=== PATIENT | male | born 1965 | race Two or more races ===

== ENCOUNTER 2024-09-27 20:18 | Emergency (ER) | payer SELFPAY ==
[2024-09-27] VITALS (8 sets, daily range): BP systolic 175–210; BP diastolic 100–142; PULSE 118–125; RESP 16–18; TEMP 37.3–38.2; O2SAT 98–100; BMI 31.0
--- NOTE | 2024-09-27 20:20 | EKG_ITS ---
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
--- NOTE | 2024-09-27 20:20 | XR_ITS ---
Examination: CT brain head without contrast. 2-D sagittal coronal reconstructions Date and time of exam:September 27, 2024 2119 hrs. Indications: Altered mental status today CTDI: vol (mGy):53.6 DLP: (mGycm):1106 Technique: Multiple CT axial sections of the brain have been obtained, 5 mm slice thickness. Contrast has not been administered. 2-D sagittal, coronal reconstructions have been obtained Low dose protocols were performed. One or more of the following dose reduction techniques were used; automated exposure control, adjustment of the mA and/or KV according to patient size, use of iterative reconstruction technique. Findings: Acute hemorrhage, 3.7 x 4.8 cm in the right temporal lobe with significant surrounding edema 4 mm hemorrhage in the temporal lobe near the brainstem Mass effect upon the right trigone Ventricles are not enlarged Old bilateral basal ganglia infarcts Cranial vault intact Impression: 3.7 x 4.8 cm acute hemorrhage in the right temporal lobe with mass effect
--- NOTE | 2024-09-27 20:20 | XR_ITS ---
Examination: AP chest single view Technique: AP portable semiupright chest single view Exam date and time: September 27, 2024 at 2104 hrs. Indications: Sepsis protocol Findings: Mild prominence left ventricle Ectatic thoracic aorta. No pneumonia or pulmonary edema Impression: No pneumonia identified
--- NOTE | 2024-09-27 20:20 | PD.EDADULT ---
ED General RME/HPI General Chief complaint: Altered Mental Status Stated complaint: AMS Time Seen by Provider: 09/27/24 20:19 Arrival date/time: 09/27/24 20:18 CC: Altered mental status HPI patient presents the ER via EMS report warm to touch tachycardia. Patient was informed approximately 2-1/2 days ago that his was diagnosed with cancer. That night at approximately 2100, patient experienced worst headache of leg which has persisted since then. Patient is awake alert oriented x 1 to self, and is complaining of a frontal headache. Related Data Previous Rx's ?Medication ?Instructions ?Recorded albuterol sulfate 90 mcg/actuation 2 puff inhalation Q6HR PRN 01/22/17 aerosol inhaler (ProAir HFA) SHORTNESS OF BREATH #1 inh Allergies Allergy/AdvReac Type Severity Reaction Status Date / Time NKA* Allergy Uncoded 02/04/17 17:52 Review of Systems Review of Systems Narrative Review of Systems: GEN: No fever, no chills, no weight loss EYES: No discharge, no visual changes, no pain HEENT: No ear pain, no congestion, no sore throat PULM: No shortness of breath, no cough, no congestion CV: No chest pain, no dyspnea on exertion, no palpitations GI: No nausea, no vomiting, no diarrhea, no pain, no constipation : No frequency, no urgency, no dysuria MUSC/SKEL: No joint pain, no back pain SKIN: No rash PSYCH: No hallucinations, no depression HEME/LYMPH: No easy bleeding or bruising tendencies NEURO: No weakness, + headache ED Exam Narrative Physical exam: [General: Appears not in any acute distress Head normocephalic HEENT: Eyes pupils are PERRLA right lateral disconjugate gaze with the right eye. Tracking. Mouth pink moist membranes uvula is midline swallow symmetrical nose: No rhinorrhea or otorrhea all other subsystems of HEENT are within acceptable limits Neck is supple nontender, no JVD Chest equal chest rise nontender to palpation Respiratory: Clear to auscultation no wheezes crackles or rubs CV: Rate rhythm is regular, tachycardic, no murmurs rubs or clicks Abdomen is soft nontender no masses positive bowel sounds all 4 quadrants Back: No CVA tenderness no spinous process tenderness from cervical spine thoracic and lumbar spine Skin: Intact no petechiae rash induration ulceration or crepitus Extremities: Moving all extremity against resistance cap refill less than 2 seconds neurosensory intact Neuro: Awake alert oriented x1, self, Glascow coma 15 no focal deficits] Course Course Course Narrative: 1127 was notified by the nurse that the patient has become slightly more somnolent. Systolic blood pressure has stabilized in the 1 50-1 40 range. Patient's case clinical presentation laboratory results and disposition discussed with Dr. Díaz who agrees to accept the patient for further medical management. Quality Measures none Orders Category Date Time Status Bedside Influenza A&B Antigen Test NOW Care 09/27/24 20:23 Completed Critical Care Clinical Nurse Specialist STAT Care 09/27/24 20:20 Active Continuous Pulse Oximetry STAT Care 09/27/24 20:20 Completed EKG (ED ONLY) *Do not use* NOW Care 09/27/24 20:20 Completed Insert IV NOW Care 09/27/24 20:20 Active NPO STAT Care 09/27/24 20:20 Active Strict Intake and Output Routine Care 09/27/24 20:[address] head/brain wo con Stat Exams 09/27/24 20:20 Completed EKG (ED Only) Stat Exams 09/27/24 20:20 Draft XR chest 1V SEPSIS PROTOCOL Stat Exams 09/27/24 20:20 Completed B-Type Natriuretic Peptide Stat Lab 09/27/24 20:50 Completed Blood Culture (Lab) Stat Lab 09/27/24 20:50 Received CBC Stat Lab 09/27/24 20:50 Completed Comprehensive Metabolic Panel Stat Lab 09/27/24 20:50 Completed LDH (Lactate Dehydrogenase) Stat Lab 09/27/24 20:50 Completed Lactate (Lactic Acid) Stat Lab 09/27/24 20:50 Completed Lipase Stat Lab 09/27/24 20:50 Completed Magnesium Stat Lab 09/27/24 20:50 Completed Partial Thromboplastin Time Stat Lab 09/27/24 20:50 Completed Phosphorous Stat Lab 09/27/24 20:50 Completed Procalcitonin Stat Lab 09/27/24 20:50 Completed Prothrombin Time with INR Stat Lab 09/27/24 20:50 Completed Troponin I Stat Lab 09/27/24 20:50 Completed Urinalysis Stat Lab 09/27/24 22:30 Completed Urine Culture Stat Lab 09/27/24 22:30 Received Acetaminophen Tab [Tylenol ES Tab] Med 09/27/24 20:34 Discontinued 1,000 mg PO X1 ONE ESMOLOL in NS 2000 MG IVPB Med 09/27/24 22:38 Discontinued 2,000 mg in 100 ml IV 500 mcg/kg/min Nicardipine/Ns 20Mg Ivpb [Cardene Ivpb] Med 09/27/24 22:47 Active 20 mg in 200 ml IV 5 mg/hr Sodium Chloride 0.9% 1000 ml [Ns] 1,000 ml Med 09/27/24 20:47 Discontinued IV 999 mls/hr hydrALAZINE INJ [Apresoline Inj] Med 09/27/24 20:47 Discontinued 20 mg IV X1 ONE hydrALAZINE INJ [Apresoline Inj] Med 09/27/24 21:34 Discontinued 20 mg IV X1 ONE Oxygen Delivery NOW RT 09/27/24 20:20 Active Vital Signs Vital signs: Vital Signs Pulse Rate 118 H 09/27/24 20:20 [facility] Patient data External records reviewed:: [facility] previous records and EMS form Clinical information provided by:: patient and EMS Social determinants that could affect healthcare access:: none Patient has the following chronic illnesses:: Unknown How is presenting disease/condition affected by chronic disease/condition?: uneffected by Evaluation data The following diagnostics were reviewed and interpreted by me:: lab results, radiology exam(s) and EKG tracing(s) Lab and/or radiology exams considered but not ordered:: EKG performed at 2040 shows a ventricular rate of 121 DE interval 141 QRS of 9 3 QTc of 388 sinus tachycardia no old EKG for comparison. Head CT shows intracranial hemorrhage. Interpretation Summary: Patient accepted at [facility] by Dr. Sheppard. Patient's blood pressure to be maintained between a systolic of 140 and 150. Will start the patient on esmolol. Medications Medications considered but not ordered:: None Medication administrations:: Medication Administration History Nicardipine/Sodium Chloride (Cardene Ivpb) 20 mg in 200 mls @ 50 mls/hr IV .Q4H PRN; Protocol PRN Reason: Hypertension Stop: 10/27/24 22:46 Last Titration: 09/27/24 23:25 Dose: 12.5 mg/hr, 125 mls/hr Documented By: Titration: 09/27/24 23:20 Dose: 12.5 mg/hr, 125 mls/hr Documented By: Titration: 09/27/24 23:15 Dose: 12.5 mg/hr, 125 mls/hr Documented By: Titration: 09/27/24 23:10 Dose: 10 mg/hr, 100 mls/hr Documented By: Titration: 09/27/24 23:05 Dose: 7.5 mg/hr, 75 mls/hr Documented By: Titration: 09/27/24 23:00 Dose: 7.5 mg/hr, 75 mls/hr Documented By: Admin: 09/27/24 22:55 Dose: 5 mg/hr, 50 mls/hr Documented By: RANULFO Discontinued Medications Acetaminophen (Acetaminophen 500 Mg Tablet) 1,000 mg PO X1 ONE Stop: 09/27/24 20:35 Last Admin: 09/27/24 21:44 Dose: 1,000 mg Documented By: RANULFO Hydralazine HCl (Hydralazine Inj 20 Mg/Ml Vial) 20 mg IV X1 ONE Stop: 09/27/24 20:48 Last Admin: 09/27/24 21:10 Dose: 20 mg Documented By: RANULFO Hydralazine HCl (Hydralazine Inj 20 Mg/Ml Vial) 20 mg IV X1 ONE Stop: 09/27/24 21:35 Last Admin: 09/27/24 21:42 Dose: 20 mg Documented By: RANULFO Sodium Chloride (Ns) 1,000 mls @ 999 mls/hr IV .Q1H1M ONE Stop: 09/27/24 21:47 Last Infusion: 09/27/24 22:22 Dose: Infused Documented By: Admin: 09/27/24 21:12 Dose: 999 mls/hr Documented By: RANULFO Esmolol HCl (Esmolol In Ns 2000 Mg Ivpb) 2,000 mg in 100 mls @ 142.881 mls/hr IV .Q42M PRN; Protocol PRN Reason: PER PROTOCOL Stop: 10/27/24 22:37 None Consultations Consultation(s) initiated? (list below): No Diagnosis Differential Diagnosis ED Complaint MDM: Intracranial hemorrhage subarachnoid hemorrhage sepsis Most likely diagnosis given after review of the tests above:: Intracranial hemorrhage Admission Indicated Admission indicated?: indicated Explain why admission is indicated or not indicated:: Transfer Admission Request Was there a request for admission?: No Disposition Plan Disposition Plan: Transfer Medical Decision Making Differential Diagnosis Differential Diagnosis: Intracranial hemorrhage subarachnoid hemorrhage sepsis Lab Data 09/27/24 20:50 09/27/24 20:50 Labs: Lab Results 09/27/24 09/27/24 Range/Units 20:50 22:30 WBC 12.1 H (3.8-10.6) Thou/mm3 RBC 4.87 (4.50-5.90) Miln/mm3 Hgb 15.8 (13.5-16.0) g/dL Hct 45.2 (41.0-53.0) % MCV 93 (80-100) fL MCH 32.4 (25.0-35.0) pg MCHC 35.0 (31.0-37.0) g/dl RDW Std Deviation 41.4 (35.1-43.9) fL Plt Count 283 (140-440) Thou/mm3 Neut % (Auto) 81 H (37-80) % Lymph % (Auto) 13 (10-50) % Wright % (Auto) 6 (0-12) % Eos % (Auto) 0 (0-10) % Baso % (Auto) 0 (0-2.5) % Neut # (Auto) 9.8 H (1.8-7.7) Thou/mm3 Lymph # (Auto) 1.6 (1.0-4.8) Thou/mm3 Wright # (Auto) 0.7 (0.0-0.8) Thou/mm3 Eos # (Auto) 0.0 (0.0-0.5) Thou/mm3 Baso # (Auto) 0.0 (0.0-0.2) Thou/mm3 Immature Gran # (Auto) 0.03 H (0.00-0.00) Thou/mm3 Absolute Nucleated RBC 0.00 (0.00-0.00) Thou/mm3 Immature Gran % 0 (0-0) % Nucleated RBC % 0 (0) /100 WBC PT 11.3 (9.0-12.2) Seconds INR 1.0 (0.9-1.3) APTT 27.4 (22.0-36.0) Seconds Sodium 134 L (136-145) mMol/L Potassium 3.6 (3.4-5.1) mMol/L Chloride 98 (98-107) mMol/L Carbon Dioxide 27.3 (20.0-31.0) mMol/L Anion Gap 9 (7-16) BUN 14 (9-23) mg/dL Creatinine 1.0 (0.6-1.3) mg/dL Estim Creat Clear Calc 88.4 (>60) mL/min eGFR > 60 (60 - ) See Note BUN/Creatinine Ratio 14 (12-20) Ratio Glucose 134 H (74-106) mg/dL Calculated Osmolality 270 L (275-295) Lactic Acid 1.7 (0.4-2.0) mMol/L Calcium 9.9 (8.3-10.6) mg/dL Corrected Calcium 9.9 (8.5-10.1) mg/dL Phosphorus 3.5 (2.4-5.1) mg/dL Magnesium 2.0 (1.6-2.6) mg/dL Total Bilirubin 0.6 (0.3-1.2) mg/dL AST < 8 (0-34) U/L ALT 10 (10-49) U/L Alkaline Phosphatase 118 H (46-116) U/L Lactate Dehydrogenase 159 (120-246) U/L Troponin I < 0.020 (0.0-0.045) ng/mL B-Natriuretic Peptide < 20 (0-100) pg/mL Total Protein 8.7 H (5.7-8.2) gm/dL Albumin 5.0 H (3.4-4.8) gm/dL Globulin 3.7 H (2.3-3.5) gm/dL Albumin/Globulin Ratio 1.4 (1.2-2.2) Lipase 36 (12-53) U/L Procalcitonin < 0.04 (0.0-0.49) ng/ml Ur Collection Type Clean Catch Urine Color Yellow (Lt Yel-Yel) Urine Clarity Clear (Clear/Hazy) Urine pH 6.5 (5.0-7.0) Ur Specific [place] 1.024 (1.001-1.035) Urine Protein 1+ A (Neg - Trace) Urine Glucose (UA) Negative (Negative) Urine Ketones 3+ A (Negative) Urine Blood Negative (Negative) Urine Nitrite Negative (Negative) Urine Bilirubin Negative (Negative) Urine Urobilinogen (Auto) Negative (0.0-1.0) mg/dL Ur Leukocyte Esterase Negative (Negative) Urine RBC 5 H (0-3) /hpf Urine WBC < 1 (0-5) /hpf Ur Squamous Epith Cells < 1 (0-5) /hpf Urine Bacteria None (None) Hyaline Casts < 1 (0-1) /hpf Discharge Plan Plan Patient Disposition: er Acute Care [facility] Facility Pt Being Transferred to: [facility] Service Needed for Transfer: Neurosurgery Patient condition on transfer: Stable Prescriptions/Referrals Prescriptions/Med Rec: No Action albuterol sulfate [ProAir HFA] 8.5 GM HFA aerosol inhaler 2 puff Inhalation Q6HR PRN (Reason: SHORTNESS OF BREATH) Qty: 1 0RF Referrals: No Primary/Family,Physician [Primary Care Provider] - In 1 week Problem List Clinical Impression: Intracranial hemorrhage Patient/Caregiver Discharge Instructions Print Language: Indonesian Stand Alone Forms: [facility] Award Info., Patient Portal Info Letter PA/[employer] W[employer] ASSOCIATE Supervising Physician PA/[employer] W[employer] ASSOCIATE Supervising Physician: Jaiden Aguillon ENP
[2024-09-27] MEDS: hydrALAZINE INJ 20 MG/ML VIAL IV ×2 (21:10→21:42)
[2024-09-27] MEDS: SODIUM CHLORIDE 0.9% 1000 ML 1,000 ML 999 ML IV (21:12)
[2024-09-27 21:13] LABS: Lactate (Lactic Acid) 1.7 mMol/L (0.4-2.0)
[2024-09-27 21:21] LABS: Basophils % (Auto) 0 % (0-2.5); Eosinophils % (Auto) 0 % (0-10); Hematocrit 45.2 % (41.0-53.0); Hemoglobin 15.8 g/dL (13.5-16.0); Immature Granulocytes % (Auto) 0 % (0-0); Immature Granulocytes Auto 0.03 Thou/mm3 (0.00-0.00); Lymphocytes # (Auto) 1.6 Thou/mm3 (1.0-4.8); Lymphocytes % (Auto) 13 % (10-50); Mean Corpuscular Hemoglobin 32.4 pg (25.0-35.0); Mean Corpuscular Volume 93 fL (80-100); Monocytes # (Auto) 0.7 Thou/mm3 (0.0-0.8); Monocytes % (Auto) 6 % (0-12); Neutrophils # (Auto) 9.8 Thou/mm3 (1.8-7.7); Neutrophils % (Auto) 81 % (37-80); Nucleated Red Blood Cell % 0 /100 WBC (0); Platelet Count 283 Thou/mm3 (140-440); RDW Standard Deviation 41.4 fL (35.1-43.9); Red Blood Count 4.87 Miln/mm3 (4.50-5.90); White Blood Count 12.1 Thou/mm3 (3.8-10.6)
[2024-09-27 21:41] LABS: Partial Thromboplastin Time 27.4 Seconds (22.0-36.0); Prothrombin Time 11.3 Seconds (9.0-12.2)
[2024-09-27 21:43] LABS: B-Type Natriuretic Peptide < 20 pg/mL (0-100)
[2024-09-27] MEDS: ACETAMINOPHEN 500 MG TABLET 1000 MG PO (21:44)
[2024-09-27 22:06] LABS: Alanine Aminotransferase 10 U/L (10-49); Albumin/Globulin Ratio 1.4 (1.2-2.2); Alkaline Phosphatase 118 U/L (46-116); Anion Gap 9 (7-16); Aspartate Amino Transferase < 8 U/L (0-34); BUN/Creatinine Ratio 14 Ratio (12-20); Bilirubin,Total 0.6 mg/dL (0.3-1.2); Blood Urea Nitrogen 14 mg/dL (9-23); Calcium 9.9 mg/dL (8.3-10.6); Calcium (Corrected) 9.9 mg/dL (8.5-10.1); Carbon Dioxide 27.3 mMol/L (20.0-31.0); Chloride 98 mMol/L (98-107); Estimated Creatinine Clearance 88.4 mL/min (>60); Globulin 3.7 gm/dL (2.3-3.5); Glucose 134 mg/dL (74-106); LDH (Lactate Dehydrogenase) 159 U/L (120-246); Lipase 36 U/L (12-53); Osmolality,Calculated 270 (275-295); Phosphorous 3.5 mg/dL (2.4-5.1); Potassium 3.6 mMol/L (3.4-5.1); Procalcitonin < 0.04 ng/ml (0.0-0.49); Sodium 134 mMol/L (136-145); Total Protein 8.7 gm/dL (5.7-8.2); Troponin I < 0.020 ng/mL (0.0-0.045); eGFR > 60 See Note
--- NOTE | 2024-09-27 22:06 | PC.NURSE ---
PROVIDER MOSER ON PHONE SPEAKING WITH TRANSFER NURSE AT THE MEDICAL [facility]
--- NOTE | 2024-09-27 22:12 | PC.NURSE ---
PACKET FAXED TO [facility], AWAITING CALL BACK
--- NOTE | 2024-09-27 22:34 | PC.NURSE ---
images pushed to [facility] via synapse
--- NOTE | 2024-09-27 22:40 | PC.NURSE ---
THIS PT IS ACCEPTED TO [facility] BY DR.. RAYMUNDO. MADDY Weathers ER:ER TRANSFER AND NUMBER FOR REPORT IS [phone]. JANETH WAS THE FACILITY REP I SPOKE WITH FOR ACCEPTING INFORMATION.
[2024-09-27 22:42] LABS: Collection Type, Urine Clean Catch
--- NOTE | 2024-09-27 22:46 | PC.NURSE ---
I SPOKE WITH ИРИНА FROM [employer] HE STATED THE [employer] DECLINES DUE TO WEATHER BUT THAT HE IS GOING TO CHECK WITH ONE OF THEIR OTHER AIR CRAFTS AND GET BACK TO US.
[2024-09-27 22:48] LABS: Bilirubin,Urine Negative (Negative); Blood,Urine Negative (Negative); Clarity,Urine Clear (Clear/Hazy); Color,Urine Yellow (Lt Yel-Yel); Glucose, Urine Negative (Negative); Hyaline Casts,Urine < 1 /hpf (0-1); Ketones,Urine 3+ (Negative); Leukocyte Esterase,Urine Negative (Negative); Nitrite,Urine Negative (Negative); PH,Urine 6.5 (5.0-7.0); Protein,Urine 1+ (Neg - Trace); RBC,Urine 5 /hpf (0-3); Specific Gravity,Urine 1.024 (1.001-1.035); Squamous Epithelial Cell,Urine < 1 /hpf (0-5); Urobilinogen,Urine Negative mg/dL (0.0-1.0); WBC,Urine < 1 /hpf (0-5)
[2024-09-27] MEDS: NICARDIPINE/NS 20MG IVPB 20 MG/200 ML BAG 50 MG IV (22:55)
--- NOTE | 2024-09-27 23:14 | PC.NURSE ---
PT IS ACCEPTED BY [facility] [employer] WITH A LAND TIME OF 0022. ANGELINA WAS WHO I SPOKE WITH FOR ACCEPTING.
[2024-09-28 00:33] VITALS: BP 154/90; PULSE 121; RESP 16; TEMP 39; O2SAT 99
[2024-09-28 00:39] VITALS: TEMP 39
[2024-09-28] MEDS: KETOROLAC INJ 30 MG/ML VIAL IVP (00:39)
[2024-09-28] MEDS: cefTRIAXone/D5w 1gm IV premix 50 ML IV (00:41)
[2024-09-28 01:19] VITALS: BP 131/83; PULSE 120
[2024-09-28] MEDS: NICARDIPINE/NS 20MG IVPB 20 MG/200 ML BAG 30 MG IV (01:19)
--- NOTE | 2024-09-28 01:26 | PC.NURSE ---
Call [facility] and gave report to Mare RENDON
== END 2024-09-28 01:24 | disposition short-term general hospital (02) ==
PROVIDERS: Registered Nurse General Practice; Emergency Provider Emergency Medicine
DX: I62.9 Nontraumatic intracranial hemorrhage, unspecified (principal)
CPT/HCPCS: 36415; 70450; 71045; 80053; 81001; 83605; 83615; 83690; 83735; 83880; 84100; 84145; 84484; 85025; 85610; 85730; 87040; 87086; 87400; 93005; 96361; 96365; 96366; 96375; 99285; J0360; J0696; J1885; J2404; J7030; A9270

== ENCOUNTER 2025-09-17 02:03 | Inpatient (IN) | payer MEDICAID, SELFPAY ==
[2025-09-17] VITALS (21 sets, daily range): BP systolic 115–170; BP diastolic 66–102; PULSE 72–137; RESP 15–95; TEMP 37.2–39.6; O2SAT 94–98
--- NOTE | 2025-09-17 02:07 | XR_ITS ---
Examination: CT brain head without contrast. 2-D sagittal coronal reconstructions Date and time of exam: September 17, 2025, 0216 hours INDICATIONS: Stroke alert, onset focal neurologic deficit including left-sided body weakness beginning 1 hour ago CTDI: vol (mGy): 52.30 DLP: (mGycm): 1087 Technique: Multiple CT axial sections of the brain have been obtained, 5 mm slice thickness. Contrast has not been administered. 2-D sagittal, coronal reconstructions have been obtained Low dose protocols were performed. One or more of the following dose reduction techniques were used; automated exposure control, adjustment of the mA and/or KV according to patient size, use of iterative reconstruction technique. Findings: No significant ventricular enlargement. Multiple small old appearing infarcts in the basal ganglia and left cerebellar hemisphere Intra-axial or extra-axial hemorrhage density is not seen. No mass effect or midline shift Basal cisterns are not remarkable. Fourth ventricle is midline. Cranial vault intact. Impression: Negative for acute hemorrhage, mass effect or midline shift
--- NOTE | 2025-09-17 02:07 | XR_ITS ---
EXAMINATION: AP chest single view TECHNIQUE: AP portable upright chest single view Date and time: September 17, 2025, 0228 hours, comparison September 27, 2024 INDICATIONS: Chest pain shortness of breath today FINDINGS: Mild enlargement left ventricle Ectatic thoracic aorta. Mild to moderate vascular congestion No lobar pneumonia Prominent osteopenia IMPRESSION: Mild to moderate vascular congestion
--- NOTE | 2025-09-17 02:07 | XR_ITS ---
Examination: CTA carotids with intravenous contrast CTA brain, head with intravenous contrast. 2-D sagittal, coronal reconstructions. 3-D reconstructions. Exam date and time: September 17, 2025, 0217 hours INDICATIONS: Stroke alert, onset focal neurologic deficit including left-sided body weakness beginning 1 hour ago CTDI: vol (mGy) 22.56 DLP: (mGycm) 507 Technique: Multiple CTA axial brain, head carotid images post intravenous contrast injection 75 cc, [id number]. 2-D sagittal, coronal reconstructions. 3-D reconstructions, 3-D post processing including vascular maximum intensity projection images. Low dose protocols were performed. One or more of the following dose reduction techniques were used; automated exposure control, adjustment of the mA and/or KV according to patient size, use of iterative reconstruction technique. Findings: No significant common carotid carotid bifurcation or internal carotid artery stenoses Codominant vertebral arteries with no critical stenoses No cerebral large vessel arterial occlusions or thrombus IMPRESSION: No significant neck arterial stenoses No cerebral large vessel arterial occlusions or thrombus
--- NOTE | 2025-09-17 02:07 | EKG_ITS ---
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
--- NOTE | 2025-09-17 02:07 | EDNOTE_ITS ---
Altered Mental Status RME/HPI General Chief Complaint: Altered Mental Status Stated Complaint: AMS Arrival date/time: 09/17/25 02:03 RME / HPI RME / HPI narrative: See [facility] for Dr. Díaz's HPI Documentation. Related Data Home Medications ?Medication ?Instructions ?Recorded ?Confirmed atorvastatin 40 mg tablet 40 mg PO DAILY 09/17/2509/05 ergocalciferol (vitamin D2) 1,250 50,000 unit PO .week ly 09/17/25 09/17/25 mcg (50,000 unit) capsule levetiracetam 500 mg tablet 500 mg PO Q12H 09/17/25 losartan 50 mg tablet 50 mg PO DAILY 09/17/2509/05 Allergies Allergy/AdvReac Type Severity Reaction Status Date / Time No Known Allergies Allergy Verified 09/17/25 02:20 Review of Systems Review of Systems Systems Reviewed: All systems reviewed, normal except as documented Past Medical History Past Medical History NEUROLOGIC: Positive Cerebrovascular Accident ED Exam Narrative Physical exam: See [facility] for Dr. Díaz's Physical Exam Documentation. Course Quality Measures none Orders Category Date Time Status Admit to Inpatient Status Routine Admission 09/17/25 09:53 Active Patient Condition Routine Admission 09/17/25 09:53 Ordered Bedside Blood Glucose NOW Care 09/17/25 02:07 Completed Bedside COVID-19 Antigen Test NOW Care 09/17/25 02:08 Active Bedside Influenza A&B Antigen Test NOW Care 09/17/25 02:08 Completed Leather Colorer Q4H START 00 Care 09/17/25 02:07 Active Continuous Pulse Oximetry NOW Care 09/17/25 02:07 Completed EKG (ED ONLY) *Do not use* NOW Care 09/17/25 02:07 Completed In and Out Catheter NEEDED Care 09/17/25 02:07 Active Insert IV NOW Care 09/17/25 02:07 Active NIH Stroke Scale now Care 09/17/25 02:07 Active NPO NOW Care 09/17/25 02:07 Completed Notify provider NEEDED Care 09/17/25 09:53 Active Nurse Swallow Screen x1 Care 09/17/25 02:07 Active Consult to Neurology / Tele-Neurology Routine Cons 09/17/25 02:07 Active Consult to Neurology / Tele-Neurology Routine Cons 09/17/25 09:[address] angio stroke protocol Stat Exams 09/17/25 02:[address] chest abdomen pelvis wo Stat Exams 09/17/25 02:[address] stroke protocol Stat Exams 09/17/25 02:07 Completed EKG (ED Only) Stat Exams 09/17/25 02:07 Draft XR chest 1V portable Stat Exams 09/17/25 02:07 Completed Alcohol, Blood Medical Stat Lab 09/17/25 02:20 Completed Arterial Blood Gas Stat Lab 09/17/25 03:03 Completed B-Type Natriuretic Peptide Stat Lab 09/17/25 02:10 Completed Beta Hydroxybutyrate Stat Lab 09/17/25 02:20 Completed Bilirubin,Direct Stat Lab 09/17/25 02:20 Completed Blood Culture (Lab) Stat Lab 09/17/25 02:10 Results CBC Stat Lab 09/17/25 02:10 Completed CRP [C-Reactive Protein] Stat Lab 09/17/25 02:20 Completed Comprehensive Metabolic Panel Stat Lab 09/17/25 02:20 Completed Drug Screen,Urine Stat Lab 09/17/25 02:33 Completed Hemoglobin A1C [Glycohemoglobin w (eAG)] Stat Lab 09/17/25 02:10 Completed Lactate (Lactic Acid) Stat Lab 09/17/25 02:10 Completed Magnesium Stat Lab 09/17/25 02:20 Completed Partial Thromboplastin Time Stat Lab 09/17/25 02:10 Completed Procalcitonin Stat Lab 09/17/25 02:20 Completed Prothrombin Time with INR Stat Lab 09/17/25 02:10 Completed Thyroid Stimulating Hormone Stat Lab 09/17/25 02:20 Completed Troponin I Stat Lab 09/17/25 02:20 Completed Urinalysis, C/S if Indicated Stat Lab 09/17/25 02:33 Completed Acetaminophen Tab [Tylenol ES Tab] Med 09/17/25 04:51 Discontinued 1,000 mg PO X1 ONE Ketorolac Inj [Toradol Inj] Med 09/17/25 02:37 Discontinued 30 mg IVP X1 ONE Metoprolol Tartrate [Lopressor] Med 09/17/25 02:37 Discontinued 25 mg PO X1 ONE POTASSIUM CHL 10% Liq 15 ML Med 09/17/25 03:08 Discontinued 40 meq PO X1 ONE Ringers Lactated 1000 ml [Lactated Ringers] 1,000 ml Med 09/17/25 03:08 Discontinued IV 1,000 mls/hr Ringers Lactated 1000 ml [Lactated Ringers] 1,000 ml Med 09/17/25 04:26 Discontinued IV 1,000 mls/hr cefTRIAXone/D5w 1gm IV premix [Rocephin/D5w 1gm IV Med 09/17/25 02:37 Discontinued premix] 1 gm in 50 ml IV X1 metroNIDAZOLE/NS 500 MG IVPB [Flagyl 500 mg IV] Med 09/17/25 05:49 Discontinued 500 mg in 100 ml IV X1 Code Status Routine Oth 09/17/25 09:53 Ordered EEG Awake and Drowsy Routine RT 09/17/25 09:54 Ordered Oxygen Delivery NOW RT 09/17/25 02:07 Active Vital Signs Vital signs: Vital Signs Temperature 103.2 F H 09/17/25 02:31 Pulse Rate 135 H 09/17/25 02:31 Respiratory Rate 18 09/17/25 02:31 Blood Pressure 148/102 H 09/17/25 02:31 Pulse Oximetry (%) 96 09/17/25 02:31 Oxygen Delivery Method Room Air 09/17/25 02:31 Altered Mental Status MDM Narrative MDM Narrative:: This section includes all my notes and documentations, including HPI, PE, and ED course. Boom Díaz MD HPI: 60 y/o male with Hx of CVA here with AMS about started 7 hours ago, around 7 PM. Family reported incontinence and loss of balance and multiple falls. Unable to obtain history from the patient due to current clinical condition. Family not present. ROS: Unable to obtain from the patient due to current clinical condition. Physical Exam: General: Appears lethargic. High BP noted. Fever noted. Eyes:? Conjunctivae and lids clear.? EOMI.? PERRL. ENT:? No signs of head trauma. Neck:? Supple.? No tenderness. Heart:? RRR. Lungs:? No respiratory distress.? Decreased air movement.? No severe rhonchi, wheezing, rales.? Chest:? No tenderness. Abdomen:? Soft with equivocal tenderness, difficult to localize.? Normal bowel sounds.? No distension.? No rebound or guarding.? Back:? No tenderness.? Skin:? Warm and dry.? Neuro:? Cranial Nerves II-XII grossly intact.? No peripheral motor deficits. Musculoskeletal:? All major joints and bones are not tender with no limited ROM. I reviewed EMS notes. I reviewed all diagnostic test results: My interpretation of the EKG is: Sinus tachycardia (124 bpm) with nonspecific ST-T changes. My interpretation of the chest x-ray is NAD. My review of the Head/Brain CT report is: Infarcts in the basal ganglia and left cerebellar hemisphere. My review of the Head/Neck CTA report is: NAD. My review of the Chest/Abdomen/Pelvis CT report is diverticulitis. Blood/urine tests unremarkable. Covid/Influenza: Negative. At this point, diagnoses include: CVA Sepsis Diverticulitis Treatment here included: IVF Toradol 30 mg IV Tylenol 1000 mg PO Oral metoprolol 25 mg Oral KCl 40 mEq Rocephin 1 g IV Flagyl 500 mg IV I discussed the case with our telehealth neurologist. About the presentation and exam and diagnostics and treatments here. Recommend admission for further care. I discussed the case with our hospitalist. About the presentation and exam and diagnostics and treatments here. And need of further care in the hospital. Will accept the patient. Boom Díaz MD Patient data External records reviewed:: [facility] previous records (Reviewed prior ED records from 09/27/24. Patient was seen for Intracranial hemorrhage.) and EMS form Clinical information provided by:: patient and family Social determinants that could affect healthcare access:: none Patient has the following chronic illnesses:: None reported How is presenting disease/condition affected by chronic disease/condition?: no chronic disease Evaluation data The following diagnostics were reviewed and interpreted by me:: lab results, radiology exam(s) and EKG tracing(s) (My interpretation of the EKG is: Sinus tachycardia (124 bpm) with nonspecific ST-T changes. Boom Díaz MD) Lab and/or radiology exams considered but not ordered:: None Interpretation Summary: I reviewed all diagnostic test results: My interpretation of the EKG is: Sinus tachycardia (124 bpm) with nonspecific ST-T changes. My interpretation of the chest x-ray is NAD. My review of the Head/Brain CT report is: Infarcts in the basal ganglia and left cerebellar hemisphere. My review of the Head/Neck CTA report is: NAD. My review of the Chest/Abdomen/Pelvis CT report is diverticulitis. Blood/urine tests unremarkable. Covid/Influenza: Negative. Medications / Prescriptions Medications or Prescriptions considered but not ordered:: None Medication administrations:: Medication Administration History Acetaminophen (Acetaminophen 325 Mg Tablet) 650 mg PO Q6H PRN PRN Reason: Fever >101.5 and pain 1-3 Stop: 10/17/25 10:56 Last Admin: 09/17/25 18:31 Dose: 650 mg Documented By: [place] Atorvastatin Calcium (Atorvastatin Calcium 20 Mg Tablet) 40 mg PO DAILY [facility] Stop: 10/18/25 08:59 Heparin Sodium (Porcine) (Heparin Sod Inj 5000 Unit/Ml Vial) 5,000 unit SC BID [facility] Stop: 10/01/25 20:59 Last Admin: 09/17/25 21:26 Dose: 5,000 unit Documented By: Co-signed By: Levetiracetam (Levetiracetam 250 Mg Tablet) 500 mg PO Q12H [facility] Stop: 10/17/25 10:59 Last Admin: 09/17/25 22:37 Dose: 500 mg Documented By: Admin: 09/17/25 11:15 Dose: 500 mg Documented By: EDUARDO Lorazepam (Lorazepam 2 Mg/Ml Vial) 2 mg IVP Q10MIN PRN PRN Reason: SEIZURES Losartan Potassium (Losartan Potassium 25 Mg Tablet) 50 mg PO DAILY [facility] Stop: 10/18/25 08:59 Ondansetron HCl (Ondansetron Inj 2 Mg/Ml Inj 2 Ml) 4 mg IVP Q6H PRN; Protocol PRN Reason: NAUSEA OR VOMITING Stop: 10/17/25 10:56 Discontinued Medications Acetaminophen (Acetaminophen 500 Mg Tablet) 1,000 mg PO X1 ONE Stop: 09/17/25 04:52 Last Admin: 09/17/25 05:00 Dose: 1,000 mg Documented By: SR Ceftriaxone Sodium/Dextrose (Rocephin/D5w 1gm Iv Premix) 1 gm in 50 mls @ 100 mls/hr IV X1 ONE Stop: 09/17/25 03:06 Last Infusion: 09/17/25 03:37 Dose: Infused Documented By: Admin: 09/17/25 03:07 Dose: 100 mls/hr Documented By: SR Lactated Ringer's (Lactated Ringers) 1,000 mls @ 1,000 mls/hr IV .Q1H ONE Stop: 09/17/25 04:07 Last Infusion: 09/17/25 04:30 Dose: Infused Documented By: Admin: 09/17/25 03:30 Dose: 1,000 mls/hr Documented By: SR Lactated Ringer's (Lactated Ringers) 1,000 mls @ 1,000 mls/hr IV .Q1H ONE Stop: 09/17/25 05:25 Last Infusion: 09/17/25 06:18 Dose: Infused Documented By: Admin: 09/17/25 05:00 Dose: 1,000 mls/hr Documented By: SR Metronidazole (Flagyl 500 Mg Iv) 500 mg in 100 mls @ 100 mls/hr IV X1 ONE Stop: 09/17/25 06:48 Last Admin: 09/17/25 06:04 Dose: 100 mls/hr Documented By: SR Ketorolac Tromethamine (Ketorolac Inj 30 Mg/Ml Vial) 30 mg IVP X1 ONE Stop: 09/17/25 02:38 Last Admin: 09/17/25 03:06 Dose: 30 mg Documented By: SR Metoprolol Tartrate (Metoprolol Tartrate 25 Mg Tablet) 25 mg PO X1 ONE Stop: 09/17/25 02:38 Last Admin: 09/17/25 03:07 Dose: 25 mg Documented By: SR Potassium Chloride (Potassium Chloride 10% 20 Meq/15 Ml Udc) 40 meq PO X1 ONE Stop: 09/17/25 03:09 Last Admin: 09/17/25 03:47 Dose: 40 meq Documented By: SR Treatment here included: IVF Toradol 30 mg IV Tylenol 1000 mg PO Oral metoprolol 25 mg Oral KCl 40 mEq Rocephin 1 g IV Flagyl 500 mg IV Consultations Consultation(s) initiated? (list below): Yes Consultation #1 (Physician, Specialty, Details): I discussed the case with our telehealth neurologist. About the presentation and exam and diagnostics and treatments here. Recommend admission for further care. I discussed the case with our hospitalist. About the presentation and exam and diagnostics and treatments here. And need of further care in the hospital. Will accept the patient. Diagnosis Differential diagnosis altered mental status: alcoholic intoxication, altered mental status, delirium, dementia, hypoglycemia, hyponatremia, subarachnoid hemorrhage, sepsis and other (CVA, TIA) Most likely diagnosis given after review of the tests above:: CVA Sepsis Diverticulitis Admission Indicated Admission indicated?: indicated Explain why admission is indicated or not indicated:: CVA Sepsis Diverticulitis Admission Request Was there a request for admission?: Yes Admission Attestation Admission request attestation: Discussed case with Hospitalist service regarding admission. Discussed patients ED course, exam findings, labs, and radiology results. Agreed to accept the patient for admission. Disposition Plan Disposition Plan: Admit Critical Care Time Critical Care Time Critical Care Time: Yes Total Critical Care Time (min.): 36 Attestation: Due to a high probability of clinically significant, life threatening deterioration, the patient required my highest level of preparedness to intervene emergently and I personally spent this critical care time directly and personally managing the patient. This critical care time included obtaining a history; examining the patient; ordering and review of studies; arranging urgent treatment with development of a management plan; evaluation of patient's response to treatment; frequent reassessment; and discussions with family and other providers. It was exclusive of separately billable procedures and treating other patients and teaching time. Boom Díaz MD Discharge Plan Plan Patient Disposition: Admit Acute Care w/in Hospital Problem List Clinical Impression: Altered mental status, Sepsis, Diverticulitis
--- NOTE | 2025-09-17 02:08 | XR_ITS ---
Examination: CT chest, without intravenous contrast. CT abdomen, without intravenous contrast. CT pelvis, without intravenous contrast. 2-D sagittal and coronal reconstructions. 3-D reconstructions. Date and time of exam: September 17, 2025, 0219 hours INDICATIONS: Patient fell today with injury to the chest and abdomen, chest pain abdomen pain CTDI vol (mgy) 11.5 DLP (MGycm) 914 Technique: Multiple CT images, 3.0 mm slice thickness, obtained chest, abdomen, pelvis, with the high-resolution 64 slice scanner.. Sagittal and coronal 2-D reconstructions are obtained. 3-D reconstructions Low dose protocols were performed. One or more of the following dose reduction techniques were used; automated exposure control, adjustment of the mA and/or KV according to patient size, use of iterative reconstruction technique. Findings: Thoracic aorta pulmonary arteries intact No hemopericardium No pneumothorax pulmonary contusion or hemothorax Manubrium and body of the sternum intact No thoracic lumbar or sacral fractures noted Rib detail is obscured by patient motion, no displaced rib fractures No liver splenic or renal laceration Aorta intact No definite gallstones No pancreatic mass Abdominal aorta intact No free blood in the abdomen or pelvis Normal appendix Colonic diverticulosis I do not visualize definite acute diverticulitis Urinary bladder intact, mild wall thickening Bones of the pelvis hips intact IMPRESSION: Thoracic aorta pulmonary arteries intact No pneumothorax pulmonary contusion or hemothorax No abdominal parenchymal laceration Abdominal aorta intact No free body in the abdomen or pelvis
[2025-09-17 02:21] LABS: Lactate (Lactic Acid) 2.0 mMol/L (0.4-2.0)
[2025-09-17 02:28] LABS: Basophils # (Auto) 0.0 Thou/mm3 (0.0-0.2); Basophils % (Auto) 0 % (0-2.5); Eosinophils # (Auto) 0.0 Thou/mm3 (0.0-0.5); Eosinophils % (Auto) 0 % (0-10); Hematocrit 41.0 % (41.0-53.0); Hemoglobin 13.9 g/dL (13.5-16.0); Immature Granulocytes Auto 0.07 Thou/mm3 (0.00-0.00); Lymphocytes # (Auto) 1.7 Thou/mm3 (1.0-4.8); Lymphocytes % (Auto) 11 % (10-50); Mean Corpuscular HGB Conc 33.9 g/dl (31.0-37.0); Mean Corpuscular Hemoglobin 32.2 pg (25.0-35.0); Mean Corpuscular Volume 95 fL (80-100); Monocytes # (Auto) 0.9 Thou/mm3 (0.0-0.8); Monocytes % (Auto) 6 % (0-12); Neutrophils # (Auto) 12.9 Thou/mm3 (1.8-7.7); Neutrophils % (Auto) 83 % (37-80); Nucleated Red Blood Cell # 0.00 Thou/mm3 (0.00-0.00); Nucleated Red Blood Cell % 0 /100 WBC (0); Platelet Count 240 Thou/mm3 (140-440); RDW Standard Deviation 43.8 fL (35.1-43.9); Red Blood Count 4.32 Miln/mm3 (4.50-5.90); White Blood Count 15.6 Thou/mm3 (3.8-10.6)
[2025-09-17 02:30] LABS: Beta Hydroxybutyrate 0.4 mmol/L (<0.6)
[2025-09-17 02:36] LABS: INR 1.2 (0.9-1.3); Partial Thromboplastin Time 26.8 Seconds (22.0-36.0); Prothrombin Time 12.2 Seconds (9.0-12.2)
[2025-09-17 02:38] LABS: Collection Type, Urine Clean Catch
[2025-09-17 02:44] LABS: Glucose Estimated Average 117 mg/dL (80-131); Hemoglobin A1C 5.7 % Hgb (4.8-6.0)
[2025-09-17 02:46] LABS: Bilirubin,Urine Negative (Negative); Blood,Urine Negative (Negative); Clarity,Urine Clear (Clear/Hazy); Color,Urine Lt-Yellow (Lt Yel-Yel); Culture Indicated,Urine Not Indicated; Glucose, Urine Negative (Negative); Ketones,Urine 1+ (Negative); Leukocyte Esterase,Urine Negative (Negative); Nitrite,Urine Negative (Negative); PH,Urine 6.5 (5.0-7.0); Protein,Urine 1+ (Neg - Trace); RBC,Urine 7 /hpf (0-3); Squamous Epithelial Cell,Urine < 1 /hpf (0-5); Urobilinogen,Urine Negative mg/dL (0.0-1.0); WBC,Urine 2 /hpf (0-5)
[2025-09-17 02:50] LABS: Specific Gravity,Urine 1.010 (1.001-1.035)
[2025-09-17 02:52] LABS: Alanine Aminotransferase 10 U/L (10-49); Albumin, Serum 4.6 gm/dL (3.4-4.8); Albumin/Globulin Ratio 1.3 (1.2-2.2); Alcohol, Blood Medical < 3.0 mg/dL (0-10.0); Alkaline Phosphatase 100 U/L (46-116); Anion Gap 13 (7-16); Aspartate Amino Transferase 16 U/L (0-34); BUN/Creatinine Ratio 14 Ratio (12-20); Bilirubin,Direct 0.2 mg/dL (0.0-0.3); Bilirubin,Total 0.6 mg/dL (0.3-1.2); Blood Urea Nitrogen 20 mg/dL (9-23); C-Reactive Protein 9.6 mg/dL (0.0-0.9); Calcium 8.8 mg/dL (8.3-10.6); Calcium (Corrected) 8.8 mg/dL (8.5-10.1); Carbon Dioxide 23.9 mMol/L (20.0-31.0); Chloride 102 mMol/L (98-107); Creatinine (Component) 1.4 mg/dL (0.6-1.3); Globulin 3.5 gm/dL (2.3-3.5); Glucose 138 mg/dL (74-106); Magnesium 1.6 mg/dL (1.6-2.6); Osmolality,Calculated 282 (275-295); Potassium 3.3 mMol/L (3.4-5.1); Procalcitonin 0.18 ng/ml (0.0-0.49); Sodium 139 mMol/L (136-145); Thyroid Stimulating Hormone 0.67 uIU/mL (0.55-4.78); Total Protein 8.1 gm/dL (5.7-8.2); Troponin I < 0.020 ng/mL (0.0-0.045); eGFR 57 See Note
[2025-09-17 02:52] LABS: Amphetamine/Methamp Scrn,U Positive (Negative); Barbiturate Screen,Urine Negative (Negative); Benzodiazepines Screen,Urine Negative (Negative); Benzoylecgonine Screen, Ur Negative (Negative); Fentanyl Screen,Urine Negative (Negative); Opiate Screen,Urine Negative (Negative); THC Screen,Urine Negative (Negative)
--- NOTE | 2025-09-17 02:54 | PC.NURSE ---
Patient came in to ED via ambulance, per EMS staff patient was presenting with an unsteady gait and confusion was noticeable. Stroke alert called, raulito had a CT scan of the head done and is in ER room 5 at the moment. Patient had a bowel movement and endorsed to this Nurse that he has been incontinent of stool for the past two weeks. Further assessment pending.
--- NOTE | 2025-09-17 02:57 | ESCONSULT_ITS ---
Tele Neuro Consultation Consultation Date 09/17/25 Most Recent Vital Signs Last Vital Signs Temp 103.2 F H 09/17/25 02:31 Pulse 132 H 09/17/25 02:37 Resp 20 09/17/25 02:37 BP 148/102 H 09/17/25 02:31 Pulse Ox 96 09/17/25 02:31 O2 Del Method Room Air 09/17/25 02:31 O2 Flow Rate 97 09/17/25 02:37 Laboratory-Coagulation Panel PT 12.2 Seconds (9.0-12.2) 09/17/25 02:10 INR 1.2 (0.9-1.3) 09/17/25 02:10 APTT 26.8 Seconds (22.0-36.0) 09/17/25 02:10 Consultation Narrative [facility] Patient Name:???GIUSEPPE SMITH Date of :???1965 Identification Number:??? Date of Service:???09/17/2025 02:05:54 Diagnosis:?R41.82 - Altered mental status, unspecified Impression: ?Encephalopathy: ?ddx: seizure activity vs multifactorial encephalopathy vs infection vs metabolic causes ? ?- Patient with history of stroke and seizures on Keppra presented with confusion, falls, and incontinence with last known well time at 1900 hours last night. Current Alonzo Coma Scale is 14 with patient moving all extremities and able to follow simple commands, representing improvement from initial presentation. Given history of stroke and seizures with current Keppra use, this is concerning for seizure activity versus multifactorial encephalopathy potentially related to infection or other metabolic causes. ? - Workup for encephalopathy to further diagnose seizures versus multifactorial encephalopathy infection ? - Order labs: CBC, CMP, UA, UDS, TSH, LFT, Magnesium, Phosphate, Vitamin B12, Folate, ammonia, blood/urine clx, ESR, CRP, ABG, HIV test, RPR ? - Obtain chest X-ray to evaluate for pulmonary involvement ? - Consider EEG if encephalopathy persists ? If no etiology is found, consider MRI brain with or without contrast ? - If failed swallow, insert NGT and start feeds w/i 48 hrs. ? - Maintain euthermia, euvolemia, euglycemia. ? - management of underlying toxic/metabolic/infectious derangements per primary team. ? - Maintain delirium precautions ? - PT/OT as tolerate ?Limit sedating/neurotoxic agent as tolerated ?Of note, clinical improvement may lag laboratory improvement by several days/weeks. ? Our recommendations are outlined below. Recommendations: ? Stroke/Telemetry Floor ? Neuro Checks ? Bedside Swallow Eval ? DVT Prophylaxis ? IV Fluids, Normal Saline ? Head of Bed 30 Degrees ? Euglycemia and Avoid Hyperthermia (PRN Acetaminophen) Sign Out: ? Discussed with Emergency Department Provider Advanced Imaging: Advanced Imaging Deferred because: Stroke not suspected with clinical presentation and exam Metrics: Last Known Well: 09/16/2025 19:00:00 Arrival Time: 09/17/2025 02:07:00 Activation Time: 09/17/2025 02:05:54 Initial Response Time: 09/17/2025 02:06:56Symptoms: AMS. Initial patient interaction: 09/17/2025 02:23:30 NIHSS Assessment Completed: 09/17/2025 02:26:56Patient is not a candidate for Thrombolytic. Thrombolytic Medical Decision: 09/17/2025 02:26:58Patient was not deemed candidate for Thrombolytic because of following reasons: LKW outside 4.[address] Head: I personally reviewed all the CT images that were available to me and it showed: no acute findings Primary Provider Notified of Diagnostic Impression and Management Plan on: 09/17/2025 02:56:35 History of Present Illness:Patient is a 60 year old Male. Patient was brought by EMS for symptoms of AMS. The patient is a patient with a medical history of stroke and seizures who presents to the ED with complaints of acute encephalopathy that began last night at approximately 1900 hours when EMT was initially dispatched due to frequent falls, confusion, and bladder and bowel incontinence. The patient was last known well at approximately 1900 hours last night. By the time EMT arrived, the patient had returned to baseline and refused transport to the hospital, so EMT left. However, EMT was subsequently dispatched again due to ongoing confusion. The patient currently has a GCS of 14, is moving all extremities, and is able to follow simple commands. The confusion and incontinence have persisted throughout the episode. The patient also reports experiencing frequent falls since symptom onset. The symptoms have remained ongoing since onset. Past Medical History: ?Stroke ?Seizures unable to obtain due to:?? Patient Is Confused Medications: No Anticoagulant use? No Antiplatelet use Reviewed EMR for current medications Allergies:? Reviewed Allergies Unable To Obtain Due To:?Patient Is Confused Social History: Unable To Obtain Due To Patient Status :?Patient Is Confused Family History: Family History Cannot Be Obtained Because:Patient Is Confused ROS :?ROS Cannot Be Obtained Because:? Patient Is Confused Past Surgical History: Past Surgical History Cannot Be Obtained Because: Patient Is Confused There Is No Surgical History Contributory To Today?s Visit Examination: BP(148/102),?Pulse(127),?Blood Glucose(140) 1A: Level of Consciousness - Alert; keenly responsive?+ 0 1B: Ask Month and Age - Both Questions Right?+ 0 1C: Blink Eyes & Squeeze Hands - Performs Both Tasks?+ 0 2: Test Horizontal Extraocular Movements - Normal?+ 0 3: Test Visual Hernández - No Visual Loss?+ 0 4: Test Facial Palsy (Use Grimace if Obtunded) - Normal symmetry?+ 0 5A: Test Left Arm Motor Drift - No Drift for 10 Seconds?+ 0 5B: Test Right Arm Motor Drift - No Drift for 10 Seconds?+ 0 6A: Test Left Leg Motor Drift - No Drift for 5 Seconds?+ 0 6B: Test Right Leg Motor Drift - No Drift for 5 Seconds?+ 0 7: Test Limb Ataxia (FNF/Heel-Vo) - No Ataxia?+ 0 8: Test Sensation - Normal; No sensory loss?+ 0 9: Test Language/Aphasia - Normal; No aphasia?+ 0 10: Test Dysarthria - Normal?+ 0 11: Test Extinction/Inattention - No abnormality?+ 0 NIHSS Score:?0 Pre-Morbid Modified [place] Scale: 2 Points = Slight disability; unable to carry out all previous activities, but able to look after own affairs without assistance Spoke with :?Dr. Díaz This consult was conducted in real time using interactive audio and video technology. Patient was informed of the technology being used for this visit and agreed to proceed. Patient located in hospital and provider located at home/of [facility] setting. Patient is being evaluated for possible acute neurologic impairment and high probability of imminent or life-threatening deterioration. I spent total of 55 minutes providing care to this patient, including time for face to face visit via telemedicine, review of medical records, imaging studies and discussion of findings with providers, the patient and/or family. Dr Carmelo Siegel [facility] For Inpatient follow-up with [facility] physician please call [facility] at . As we are not an outpatient service for any post hospital discharge needs please contact the hospital for assistance. If you have any questions for the [facility] physicians or need to reconsult for clinical or diagnostic changes please contact us via [facility] at . Non-radiologist review of imaging performed to assist with emergent clinical decision-making. Remote physician workstations do not possess the same resolution, calibration, or diagnostic capabilities as hospital-based radiology reading stations, and formal radiologist read is necessary. Signature :Ara Siegel
[2025-09-17 03:02] LABS: B-Type Natriuretic Peptide 28 pg/mL (0-100)
[2025-09-17] MEDS: KETOROLAC INJ 30 MG/ML VIAL IVP (03:06)
[2025-09-17] MEDS: METOPROLOL TARTRATE 25 MG TABLET PO (03:07)
[2025-09-17] MEDS: cefTRIAXone/D5w 1gm IV premix 1 GM/50 ML BAG IV (03:07)
[2025-09-17 03:08] LABS: Base Excess 1 (-3-3); HCO3 24 mEq/L (20-26); Inspired Oxygen, FIO2 21 %; O2 Saturation 95 % (91-98); PCO2 35 mmHg (32.0-48.0); PO2 67 mmHg (83-108); pH, Arterial 7.45 (7.35-7.45)
[2025-09-17 03:09] LABS: Allen Test Performed/OK; Puncture Site Right Radial
[2025-09-17] MEDS: RINGERS LACTATED 1000 ML 1,000 ML IV ×2 (03:30→05:00)
[2025-09-17] MEDS: POTASSIUM CHLORIDE 10% 20 MEQ/15 ML UDC 40 MEQ PO (03:47)
[2025-09-17] MEDS: ACETAMINOPHEN 500 MG TABLET 1000 MG PO (05:00)
[2025-09-17] MEDS: metroNIDAZOLE/NS 500 MG IVPB 500 MG/100 ML BAG 100 MG IV (06:04)
--- NOTE | 2025-09-17 13:51 | RESP.EEG ---
aware EEG will not completed until pt is admitted to a private room
--- NOTE | 2025-09-17 14:11 | ESHP_ITS ---
<Statement entered by Alcides Singh MD - 09/17/25 16:54> 60-year-old male with a past medical history of CVA, seizure, hypertension, hyperlipidemia presented with acute encephalopathy. at bedside and provided additional history he stated that for the last couple of days patient appeared to be weak and had multiple falls with associated bowel or bladder incontinence. He denies any tonic-clonic movements or loss of consciousness but may have seen some facial droop but unsure which side. Due to unresolving symptoms, family member called EMS and patient was brought to the ED. In the ED, stroke alert was called and teleneurology was consulted. Differentials include seizure activity versus multifactorial encephalopathy versus infection versus metabolic etiology. GCS of 14 upon evaluation NIHSS of 0 and recommended further workup. CT head negative, CTA head/neck negative. CT C/A/P unremarkable. EKG showing sinus tachycardia. CBC shows mild leukocytosis. CHEM panel significant for mild hypokalemia and creatinine of 1.4 but otherwise unremarkable. U tox positive for amphetamines. Will also order ammonia, TSH, B12, folate, ESR, CRP, HIV, and RPR per teleneuro recommendations. Also order EEG and consulted in house neurology and will follow-up on recommendations. Resumed home keppra and added as needed lorazepam for breakthrough seizures. ----- Note reviewed and agree with care plan as documented. Please refer to the note below for further details. Plan discussed with attending physician Dr. Violeta Singh MD PGY-2 Internal Medicine Documentation for date of: 09/17/25 HPI History of Present Illness Chief complaint: AMS History of present illness: Mr. Salazar is 60 year old male with past medical history significant history of stroke complicated by bowel incontinence (Sep 2024), HTN, HLD, Seizure disorder, who presented to the ED on 09/27/2025 with chief. complaint of altered mental status. The patient?s family was present at the bedside but provided a limited history. Per the patient?s , when she last saw him yesterday evening, he was difficult to get out of bed, appeared unsteady, and lost his balance, resulting in two falls. During these episodes, she noted body stiffnes, facial droop with drooling and drooping of the eyes, though she does not recall which side was affected. Also reports patient.Due to these concerns, the patient?s daughter called 911. The also reports that the patient was confused, had a febrile episode, and experienced bowel incontinence at the time of the fall. The patient was last known well at approximately 1900 hours last night. By the time EMT arrived, the patient had returned to baseline and refused transport to the hospital, so EMT left. However, EMT was subsequently dispatched again due to ongoing confusion. On examination, the patient was somnolent but arousable and alert and oriented. He does not clearly recall any possible seizure-like episodes. He endorses an intermittent cough for one week without associated sputum production. He denies chills, chest pain, palpitations, diaphoresis, abdominal pain, or generalized body aches. At baseline, the patient is able to ambulate independently but walks slowly due to a prior stroke. ED Course: -Initial vitals were blood pressure 148/102, pulse 135, respiratory 18, temperature 103.2, O2 sat 96% on room air. -Labs significant for WBC 15.6 with leukocytes shift of 12.9, K 3.3, Cr 1.4, GFR 57, Glucose 138, CRP 9.6. Utox positive for Methamphetamine - Imaging included chest x-ray that showed mild vascular congestion, head/neck CTA showed no significant neck arterial stenosis, CTAP showed colonic diverticulosis, no pneumothorax pulmonary production pneumothorax. EKG showed sinus tachycardia with a rate of 124 - In the ED, patient was given ketorolac 30 mg x 1, Rocephin 1 g IV, Flagyl 500 mg IV, metoprolol tartrate 25mg, Tylenol 1000 mg PO -Patient was admitted for acute encephalopathy Review of Systems Review of systems otherwise negative except what is mentioned above. Past Medical History: Mentioned above Family History: Mother-stroke and hypertension Surgical History: Noncontributory Social History: Denies history of smoking, - Denies current alcohol use, - Denies recreational drug use, however UTOX positive for methamphetamine. Current Medications: Atorvastatin 40 mg p.o. daily, - vitamin D2 50,000 units p.o. weekly - levothyroxine 100 mg p.o. daily- - losartan 50 mg p.o. daily to Allergies: No known drug allergies Exam Vital Signs Temp Pulse Resp BP Pulse Ox O2 Del Method O2 Flow Rate 99.3 F 93 15 170/82 H 98 Room Air 97 09/17/25 10:42 09/17/25 10:42 09/17/25 10:42 09/17/25 10:42 09/17/25 10:42 09/17/25 10:42 09/17/25 02:37 Narrative Exam General: Alert, no acute distress.Conversational and somnolent Skin: Warm, dry, intact. No rash or ecchymoses. Head: Normocephalic, atraumatic. Eye: Normal conjunctiva, PERRL. Throat: Oral mucosa moist. No obvious lesions in oropharynx. Cardiovascular: Regular rate and rhythm, no murmur, +S1/S2. Respiratory: Lungs are clear to auscultation, respirations unlabored, no crackles, no wheezing. Gastrointestinal: Soft, nontender, non-distended. No guarding or rebound tenderness. Extremities: No edema, no cyanosis, no clubbing. Neuro: GCS of 14Alert and oriented x3.No focal deficits observed. Conversant, moving all extremities. No overt cerebellar signs/incoordination. Psychiatric: Cooperative, appropriate affect Results: Labs 09/18/25 05:33 09/18/25 05:33 Labs: Short CBC 09/17/25 Range/Units 02:10 WBC 15.6 H (3.8-10.6) Thou/mm3 Hgb 13.9 (13.5-16.0) g/dL Hct 41.0 (41.0-53.0) % Plt Count 240 (140-440) Thou/mm3 BMP 09/17/25 02:20 Sodium 139 Potassium 3.3 L Chloride 102 Carbon Dioxide 23.9 BUN 20 Creatinine 1.4 H Glucose 138 H Calcium 8.8 Cardiac Enzymes 09/17/25 Range/Units 02:20 Troponin I < 0.020 (0.0-0.045) ng/mL Liver Function 09/17/25 Range/Units 02:20 Total Bilirubin 0.6 (0.3-1.2) mg/dL Direct Bilirubin 0.2 (0.0-0.3) mg/dL AST 16 (0-34) U/L ALT 10 (10-49) U/L Alkaline Phosphatase 100 (46-116) U/L Albumin 4.6 (3.4-4.8) gm/dL Urine 09/17/25 Range/Units 02:33 Urine Color Lt-Yellow (Lt Yel-Yel) Urine Clarity Clear (Clear/Hazy) Urine pH 6.5 (5.0-7.0) Ur Specific [place] 1.010 (1.001-1.035) Urine Protein 1+ A (Neg - Trace) Urine Glucose (UA) Negative (Negative) ABG Interpretation ABG results: 09/17/25 03:03 ABG pH 7.45 ABG pCO2 35 ABG pO2 67 L ABG HCO3 24 ABG O2 Saturation 95 ABG Base Excess 1 Quality Measures Quality Measures none Medications Home Medications and Allergies Home Medications ?Medication ?Instructions ?Recorded ?Confirmed ?Type atorvastatin 40 mg tablet 40 mg PO DAILY 09/17/2509/05 History ergocalciferol (vitamin D2) 1,250 50,000 unit PO .week ly 09/17/25 09/17/25 History mcg (50,000 unit) capsule levetiracetam 500 mg tablet 500 mg PO Q12H 09/17/25 History losartan 50 mg tablet 50 mg PO DAILY 09/17/2509/05 History Allergies Allergy/AdvReac Type Severity Reaction Status Date / Time No Known Allergies Allergy Verified 09/17/25 02:20 Visit Medications Acetaminophen (Acetaminophen 325 Mg Tablet) 650 mg PO Q6H PRN PRN Reason: Fever >101.5 and pain 1-3 Stop: 10/17/25 10:56 Atorvastatin Calcium (Atorvastatin Calcium 20 Mg Tablet) 40 mg PO DAILY [facility] Stop: 10/18/25 08:59 Heparin Sodium (Porcine) (Heparin Sod Inj 5000 Unit/Ml Vial) 5,000 unit SC BID [facility] Stop: 10/01/25 20:59 Levetiracetam (Levetiracetam 250 Mg Tablet) 500 mg PO Q12H [facility] Stop: 10/17/25 10:59 Last Admin: 09/17/25 11:15 Dose: 500 mg Losartan Potassium (Losartan Potassium 25 Mg Tablet) 50 mg PO DAILY [facility] Stop: 10/18/25 08:59 Ondansetron HCl (Ondansetron Inj 2 Mg/Ml Inj 2 Ml) 4 mg IVP Q6H PRN; Protocol PRN Reason: NAUSEA OR VOMITING Stop: 10/17/25 10:56 Discontinued Medications Acetaminophen (Acetaminophen 500 Mg Tablet) 1,000 mg PO X1 ONE Stop: 09/17/25 04:52 Last Admin: 09/17/25 05:00 Dose: 1,000 mg Ceftriaxone Sodium/Dextrose (Rocephin/D5w 1gm Iv Premix) 1 gm in 50 mls @ 100 mls/hr IV X1 ONE Stop: 09/17/25 03:06 Last Infusion: 09/17/25 03:37 Dose: Infused Lactated Ringer's (Lactated Ringers) 1,000 mls @ 1,000 mls/hr IV .Q1H ONE Stop: 09/17/25 04:07 Last Infusion: 09/17/25 04:30 Dose: Infused Lactated Ringer's (Lactated Ringers) 1,000 mls @ 1,000 mls/hr IV .Q1H ONE Stop: 09/17/25 05:25 Last Infusion: 09/17/25 06:18 Dose: Infused Metronidazole (Flagyl 500 Mg Iv) 500 mg in 100 mls @ 100 mls/hr IV X1 ONE Stop: 09/17/25 06:48 Last Admin: 09/17/25 06:04 Dose: 100 mls/hr Ketorolac Tromethamine (Ketorolac Inj 30 Mg/Ml Vial) 30 mg IVP X1 ONE Stop: 09/17/25 02:38 Last Admin: 09/17/25 03:06 Dose: 30 mg Metoprolol Tartrate (Metoprolol Tartrate 25 Mg Tablet) 25 mg PO X1 ONE Stop: 09/17/25 02:38 Last Admin: 09/17/25 03:07 Dose: 25 mg Potassium Chloride (Potassium Chloride 10% 20 Meq/15 Ml Udc) 40 meq PO X1 ONE Stop: 09/17/25 03:09 Last Admin: 09/17/25 03:47 Dose: 40 meq Assessment & Plan Plan Mr. Salazar is 60 year old male with past medical history significant history of stroke complicated by bowel incontinence (Sep 2024), HTN, HLD, Seizure disorder, who presented to the ED on 09/27/2025 with chief. complaint of altered mental status. #Acute Encephalopathy, multifactorial 2/2 #Methamphetamine use #Bowel incontinence 2/2 to prior CVA #Leukocytosis #Hypokalemia DDx: Infectious vs metabolic vs drugs/toxins vs seizures The patient presented with one day of acute confusion and fever following a fall. Per the patient?s , he lost balance and fell, after which he exhibited possible tonic?clonic seizure activity with facial droop, copious drooling, and two episodes of bowel incontinence. Urine toxicology was positive for methamphetamine, though the patient denies use. Given this presentation, acute encephalopathy is suspected, likely multifactorial. Methamphetamine use may have contributed via central nervous system overstimulation, resulting in neurotoxicity, oxidative stress, and neuronal injury, leading to global alteration in mental status. Additionally, electrolyte imbalance, specifically hypokalemia, may have caused neuronal dysfunction contributing to altered mentation. Infectious etiology is also considered, as the patient was febrile with cough and leukocytosis, suggesting a possible respiratory infection contributing to encephalopathy. On examination, the patient?s mentation has already shown improvement following administration of antipyretics, intravenous fluids, and potassium repletion, with no persistent focal neurologic deficits noted. - NIHSS Score:?0 - WBC 15.6, k3.3, CRP 9.6. Procalcitonin 0.18 (normal), TSH is 0.64 (normal). Utox (+) methamphetamine -Received 2L LR maintenance; KCl 40 mEq -Chest x-ray that showed mild vascular congestion - Head/neck CTA showed no significant neck arterial stenosis, - CTAP showed colonic diverticulosis - Passed swallow evaluation Plan - Stroke/Telemetry Floor - Neuro Checks -?DVT Prophylaxis -?IV Fluids, Normal Saline - Head of Bed 30 Degrees -?Euglycemia and Avoid Hyperthermia (PRN Acetaminophen) - Daily CBC - Neurology, recommendation appreciated - Repleated electrolytes as needed - Physical therapy referral - Neurology ordered, pending - Cocci ordered, pending - Ammonia ordered, pending - Counseled regarding dangers and consequences of meth use. Social service referral #Hx Seizure disorder Patient history of sexiure for which she takes Keppra 500 mg. Given pt clinical presentation stated per body stiffnes, facial droop with drooling and drooping of the eyes in setting of fall. Patient might have had a witnessed seizure exacerbated by methamphetamine use. Plan - Home medication keppra 500mg - Ativan 2mg PRN for breakthrough seizures - Seizure precaution #Hyperlipidemia - Resume home atorvastatin 40 mg #?QUINTIN On admission, the patient?s creatinine was 1.4 mg/dL with a GFR of 57 mL/min. There are insufficient prior laboratory values to meet criteria for acute kidney injury; the mild creatinine elevation is likely secondary to poor oral intake and dehydration. - Pt doesn't meet KDIGO criteria : - Increase in serum creatinine >=0.3 mg/dL within 48 hours, or - Increase in serum creatinine to >=1.5 times baseline known or presumed to have occurred within the prior 7 days, or - Urine output < 0.5 mL/kg/hour for >=6 hours - Prior 09/27/24 Cr 1.0 Plan - Will continue to trend kidney fucntion -Avoid nephrotoxins -Monitor renal panel # CT finding of diverticulosis Patient denies abdominal pain, changes with bowel movement. - CTAP showed colonic diverticulosis - Encouraged increased hydration and fiber intake Hospital management: Lines: peripheral IV Diet: regular GI prophylaxis: pantoprazole DVT prophylaxis: heparin Sc Disposition: med-tele acute encephalopathy CODE STATUS: Full code Patient assessed under supervision of attending physician and senior resident Dr. Singh PGY-2 Aspen Martinez MD PGY-1, Internal Medicine Please note: this document was transcribed using voice recognition technology; minor inaccuracies may be present. Attending Provider Attestation/Addendum I have examined the patient, reviewed labs and imaging findings, discussed the case with the resident(s), and reviewed entered orders. I agree with the plan of care as outlined in this note, with these additional summaries/recommendations: After examination of the patient and review of the clinical data, I feel that this patient needs admission to the hospital for further treatment and evaluation. Dr. Violeta MD
[2025-09-17 15:06] LABS: Cocci Serology, IgM Negative (Negative)
[2025-09-17] MEDS: ACETAMINOPHEN 325 MG TABLET 650 MG PO (18:31)
[2025-09-17] MEDS: HEPARIN SOD INJ 5000 UNIT/ML VIAL SC (21:26)
[2025-09-18] VITALS (7 sets, daily range): BP systolic 108–131; BP diastolic 63–90; PULSE 74–100; RESP 15–18; TEMP 36.6–37.1; O2SAT 94–99
[2025-09-18 05:50] LABS: Basophils # (Auto) 0.0 Thou/mm3 (0.0-0.2); Basophils % (Auto) 0 % (0-2.5); Eosinophils # (Auto) 0.0 Thou/mm3 (0.0-0.5); Eosinophils % (Auto) 0 % (0-10); Hematocrit 35.1 % (41.0-53.0); Hemoglobin 11.8 g/dL (13.5-16.0); Immature Granulocytes Auto 0.08 Thou/mm3 (0.00-0.00); Lymphocytes # (Auto) 1.1 Thou/mm3 (1.0-4.8); Lymphocytes % (Auto) 9 % (10-50); Mean Corpuscular HGB Conc 33.6 g/dl (31.0-37.0); Mean Corpuscular Hemoglobin 32.9 pg (25.0-35.0); Mean Corpuscular Volume 98 fL (80-100); Monocytes # (Auto) 0.5 Thou/mm3 (0.0-0.8); Monocytes % (Auto) 5 % (0-12); Neutrophils # (Auto) 10.0 Thou/mm3 (1.8-7.7); Neutrophils % (Auto) 86 % (37-80); Nucleated Red Blood Cell # 0.00 Thou/mm3 (0.00-0.00); Nucleated Red Blood Cell % 0 /100 WBC (0); Platelet Count 213 Thou/mm3 (140-440); RDW Standard Deviation 45.8 fL (35.1-43.9); Red Blood Count 3.59 Miln/mm3 (4.50-5.90); White Blood Count 11.7 Thou/mm3 (3.8-10.6)
[2025-09-18 06:12] LABS: Anion Gap 12 (7-16); BUN/Creatinine Ratio 15 Ratio (12-20); Blood Urea Nitrogen 15 mg/dL (9-23); Calcium 8.3 mg/dL (8.3-10.6); Carbon Dioxide 23.0 mMol/L (20.0-31.0); Chloride 105 mMol/L (98-107); Creatinine (Component) 1.0 mg/dL (0.6-1.3); Glucose 102 mg/dL (74-106); Magnesium 1.7 mg/dL (1.6-2.6); Osmolality,Calculated 280 (275-295); Phosphorous 2.2 mg/dL (2.4-5.1); Potassium 3.4 mMol/L (3.4-5.1); Sodium 140 mMol/L (136-145); eGFR > 60 See Note
[2025-09-18 06:14] LABS: Ammonia 30 uMol/L (11-32)
--- NOTE | 2025-09-18 07:15 | RESP.EEG ---
EEG COMPLETED AT THIS TIME AND WAITING TO BE READ
[2025-09-18] MEDS: LOSARTAN POTASSIUM 25 MG TABLET 50 MG PO (08:58)
[2025-09-18] MEDS: ATORVASTATIN CALCIUM 20 MG TABLET 40 MG PO (08:58)
[2025-09-18] MEDS: HEPARIN SOD INJ 5000 UNIT/ML VIAL SC ×2 (08:58→20:20)
[2025-09-18 10:15] LABS: Syphilis Nonreactive (Nonreactive)
--- NOTE | 2025-09-18 10:51 | ESPR_ITS ---
<Statement entered by Alcides Singh MD - 09/18/25 14:47> No acute overnight events. Seen and examined at bedside and preparing to undergo EGD. Patient oriented to name and place and not oriented to birthdate for year. endorses patient not at his baseline. Noted to have fever 1 to 2.8 ?F and pulse of 100 but otherwise vital signs stable. CBC shows improving leukocytosis, slight drop in hemoglobin but may be dilutional as platelets have also decreased. Hypokalemia resolved and otherwise CHEM panel unremarkable other than phosphorus that was repleted. Blood cultures pending, will follow-up EEG results and neuro recommendations. ----- Note reviewed and agree with care plan as documented. Please refer to the note below for further details. Plan discussed with attending physician Dr. Violeta Singh MD PGY-2 Internal Medicine Documentation for date of: 09/18/25 Subjective Subjective Interval history: Overnight patient had a fever 102.8 for which resolved after Tylenol. Today patient seen and examined at bedside, afebrile, no diaphoresis, no chest pain and generalized muscle ache. Upon evaluation patient was alert oriented x 2. Noted noted fluctuation in mentation. Labs reviewed and noted improvement in WBC, downtrending H&H which may be dilutional. CHEM panel noted phosphorus 2.2- repleted 1 packed neutra-phos and magnesium 1.7- repleted 2gm MgSo4. Due to a febrile episode with altered mentation and a negative initial encephalopathy workup, additional diagnostic studies were ordered, including MRI, lumbar puncture, HIV testing, and syphilis serologies, to further evaluate the etiology of the patient?s fluctuating altered mental status. EEG done, pending read and neurology recommendation. Exam Vital Signs Temp Pulse Resp BP Pulse Ox O2 Del Method O2 Flow Rate 98.8 F 100 18 130/90 H 96 Room Air 97 09/18/25 08:00 09/18/25 08:58 09/18/25 08:00 09/18/25 08:58 09/18/25 08:00 09/18/25 08:00 09/17/25 02:37 Narrative Exam General: Alert, no acute distress.Conversational and non-toxic appearing. Skin: Warm, dry, intact. No rash or ecchymoses. Head: Normocephalic, atraumatic. Eye: Normal conjunctiva, PERRL. Throat: Oral mucosa moist. No obvious lesions in oropharynx. Cardiovascular: Regular rate and rhythm, no murmur, +S1/S2. Respiratory: Lungs are clear to auscultation, respirations unlabored, no crackles, no wheezing. Gastrointestinal: Soft, nontender, non-distended. No guarding or rebound tenderness. Extremities: No edema, no cyanosis, no clubbing. Neuro: Alert and oriented x2 ( fluctuates) .No focal deficits observed. Conversant, moving all extremities. No overt cerebellar signs/incoordination.No nuchal rigidity Psychiatric: Cooperative, appropriate affect Objective Labs 09/19/25 06:12 09/19/25 06:12 Labs: Laboratory Results - last 24 hr 09/17/25 09/18/25 11:46 05:33 WBC 11.7 H RBC 3.59 L Hgb 11.8 L D Hct 35.1 L MCV 98 MCH 32.9 MCHC 33.6 RDW Std Deviation 45.8 H Plt Count 213 Neut % (Auto) 86 H Lymph % (Auto) 9 L [place] % (Auto) 5 Eos % (Auto) 0 Baso % (Auto) 0 Neut # (Auto) 10.0 H Lymph # (Auto) 1.1 [place] # (Auto) 0.5 Eos # (Auto) 0.0 Baso # (Auto) 0.0 Immature Gran # (Auto) 0.08 H Absolute Nucleated RBC 0.00 Immature Gran % 1 H Nucleated RBC % 0 Sodium 140 Potassium 3.4 Chloride 105 Carbon Dioxide 23.0 Anion Gap 12 BUN 15 Creatinine 1.0 Estim Creat Clear Calc Not Performed. eGFR > 60 BUN/Creatinine Ratio 15 Glucose 102 Calculated Osmolality 280 Calcium 8.3 Phosphorus 2.2 L Magnesium 1.7 Ammonia 30 Syphilis Serology Nonreactive Coccidioides IgM Ab Negative ABG Interpretation ABG results: 09/17/25 03:03 ABG pH 7.45 ABG pCO2 35 ABG pO2 67 L ABG HCO3 24 ABG O2 Saturation 95 ABG Base Excess 1 Quality Measures Quality Measures none Assessment & Plan Assessment Current Active Medications: Generic Name Dose Route Start Last Admin Trade Name Freq PRN Reason Stop Dose Admin Acetaminophen 650 mg 09/17/25 10:57 09/17/25 18:31 Acetaminophen 325 Mg Tablet PO 10/17/25 10:56 650 mg Q6H PRN Administration Fever >101.5 and pain 1-3 Atorvastatin Calcium 40 mg 09/18/25 09:00 09/18/25 08:58 Atorvastatin Calcium 20 Mg Tablet PO 10/18/25 08:59 40 mg DAILY [facility] Administration Heparin Sodium (Porcine) 5,000 unit 09/17/25 21:00 09/18/25 08:58 Heparin Sod Inj 5000 Unit/Ml Vial SC 10/01/25 20:59 5,000 unit BID GU[facility] Administration Levetiracetam 500 mg 09/17/25 11:00 09/17/25 22:37 Levetiracetam 250 Mg Tablet PO 10/17/25 10:59 500 mg Q12H GUME Administration Lorazepam 2 mg 09/17/25 14:38 Lorazepam 2 Mg/Ml Vial IVP Q10MIN PRN SEIZURES Losartan Potassium 50 mg 09/18/25 09:00 09/18/25 08:58 Losartan Potassium 25 Mg Tablet PO 10/18/25 08:59 50 mg DAILY GU[facility] Administration Ondansetron HCl 4 mg 09/17/25 10:57 Ondansetron Inj 2 Mg/Ml Inj 2 Ml IVP 10/17/25 10:56 Q6H PRN NAUSEA OR VOMITING Protocol Plan Mr. Salazar is 60 year old male with past medical history significant history of stroke complicated by bowel incontinence (Sep 2024), HTN, HLD, Seizure disorder, who presented to the ED on 09/27/2025 with chief. complaint of altered mental status. #Acute Encephalopathy, multifactorial 2/2 #Methamphetamine use #Bowel incontinence 2/2 to prior CVA #Leukocytosis (resolving) #Hypokalemia (resolving) DDx: Infectious vs metabolic vs drugs/toxins vs seizures The patient presented with one day of acute confusion and fever following a fall. Per the patient?s , he lost balance and fell, after which he exhibited possible tonic?clonic seizure activity with facial droop, copious drooling, and two episodes of bowel incontinence. Urine toxicology was positive for methamphetamine, though the patient denies use. Given this presentation, acute encephalopathy is suspected, likely multifactorial. Methamphetamine use may have contributed via central nervous system overstimulation, resulting in neurotoxicity, oxidative stress, and neuronal injury, leading to global alteration in mental status. Additionally, electrolyte imbalance, specifically hypokalemia, may have caused neuronal dysfunction contributing to altered mentation. Infectious etiology is also considered, as the patient was febrile with cough and leukocytosis, suggesting a possible respiratory infection contributing to encephalopathy. On examination, the patient?s mentation has already shown improvement following administration of antipyretics, intravenous fluids, and potassium repletion, with no persistent focal neurologic deficits noted. - NIHSS Score:?0 - WBC 15.6, k3.3, CRP 9.6. Procalcitonin 0.18 (normal), TSH is 0.64 (normal). Utox (+) methamphetamine - Received 2L LR maintenance; KCl 40 mEq -Chest x-ray that showed mild vascular congestion - Head/neck CTA showed no significant neck arterial stenosis, - CTAP showed colonic diverticulosis - Passed swallow evaluation - Cocci IgM ab -negative - Ammonia 30 - Syphilis -nonreactive - HIV (1&2) rapid antibody - nonreactive Plan - MRI brain wwo MRA and LP as encephalopaty fluctuates and etiology is still not cleared - Neuro Checks -?DVT Prophylaxis - Head of Bed 30 Degrees -?Euglycemia and Avoid Hyperthermia (PRN Acetaminophen) - Daily CBC - Repleated electrolytes as needed - Physical therapy referral, pending - Neurology ordered, pending - Counseled regarding dangers and consequences of meth use. Social service referral - Neurology, recommendation appreciated #Seizure disorder Patient history of sexiure for which she takes Keppra 500 mg. Given pt clinical presentation stated per body stiffnes, facial droop with drooling and drooping of the eyes in setting of fall. Patient might have had a witnessed seizure exacerbated by methamphetamine use. Plan - keppra 500mg and ativan 2mg PRN for breakthrough seizures - Seizure precaution - Neurology consulted- pending recc - EEG done, pening read #Hyperlipidemia - Continue home atorvastatin 40 mg #Primary hypertension On admission BP 148/102, home losartan 50mg Plan - Continue losartan 50mg po daily #?QUINTIN (resolve) On admission, the patient?s creatinine was 1.4 mg/dL with a GFR of 57 mL/min. There are insufficient prior laboratory values to meet criteria for acute kidney injury; the mild creatinine elevation is likely secondary to poor oral intake and dehydration. Pt doesn't meet KDIGO criteria : - Increase in serum creatinine >=0.3 mg/dL within 48 hours, or - Increase in serum creatinine to >=1.5 times baseline known or presumed to have occurred within the prior 7 days, or - Urine output < 0.5 mL/kg/hour for >=6 hours - Prior 09/27/24 Cr 1.0 Plan - Will continue to trend kidney fucntion -Avoid nephrotoxins -Monitor renal panel # CT finding of diverticulosis Patient denies abdominal pain, changes with bowel movement. - CTAP showed colonic diverticulosis - Encouraged increased hydration and fiber intake Hospital management: Lines: peripheral IV Diet: regular GI prophylaxis: pantoprazole DVT prophylaxis: heparin Sc Disposition: med-tele acute encephalopathy CODE STATUS: Full code Patient assessed under supervision of attending physician and senior resident Dr. Singh PGY-2 Aspen Martinez MD PGY-1, Internal Medicine Please note: this document was transcribed using voice recognition technology; minor inaccuracies may be present Attending Provider Attestation/Addendum I have examined the patient, reviewed labs and imaging findings, discussed the case with the resident(s), and reviewed entered orders. I agree with the plan of care as outlined in this note. Dr. Violeta MD
[2025-09-18 11:12] LABS: HIV (1&2) Antibody Rapid Non-Reactive
[2025-09-18] MEDS: Magnesium Sulfate 2 GM Ivpb 2 GM/50 ML BAG IV (14:51)
[2025-09-18] MEDS: NAPH,KPH MBDB 1 PACKET (1.5 GM) PO (14:52)
--- NOTE | 2025-09-18 15:09 | PC.SS ---
Martinez Salazar is a 60 year-old male admitted to [facility] for Acute Encephalopathy. SS conducted bedside contact with the patient to complete initial assessment and to discuss discharge planning. Role and reason explained. Patient confirmed demographic information. Patient identifies his bwife Bhavya Gil [phone] as his surrogate decision maker. Pt states he is able to complete all ADL?s independent. Pt does not possesses any DME. Pts PCP is Sonia Benavidez. Pharmacy of choice is [facility]. Discharge options discussed and the pt wishes to return home.? Pt family will provide transport. No further intervention required at this time, social work msw would be available to address any further concerns. DC Plan: Home Contact: Address: Confirmed on face sheet
[2025-09-18 15:11] LABS: Cocci Serology, IgG Negative (Negative)
--- NOTE | 2025-09-18 16:19 | PC.SS ---
Rounding: Confused, pending neuro, MRI and EEG pending
--- NOTE | 2025-09-18 23:56 | ESPR_ITS ---
Documentation for date of: 09/18/25 Subjective Subjective Interval history: Patient was seen in [facility] today, no complaints at present. Exam - Neurology Vital Signs Temp Pulse Resp BP Pulse Ox O2 Del Method O2 Flow Rate 98.5 F 89 18 131/80 H 94 L Room Air 97 09/18/25 20:00 09/18/25 20:00 09/18/25 20:00 09/18/25 20:00 09/18/25 20:00 09/18/25 20:00 09/17/25 02:37 Narrative Exam GEN. APPEARANCE: The patient is alert awake oriented X 2, Patient has good eye contact. Patient is cooperative. HEENT: Normocephalic, atraumatic and nontender. Pupils are equal and reactive. Oral mucosa is moist. NECK: Supple, nontender, no meningismus, no JVD. There is no thyromegaly and no lymphadenopathy. CHEST: Nontender on palpation no deformity and no crepitus. CARDIOVASCULAR: Heart regular rhythm, no murmur or gallop rub or extra beats. LUNGS: Clear to auscultation bilaterally with symmetrical chest rise. No laboring tachypnea or wheezing. No intercostal subcostal retraction. No rales and no rhonchi. ABDOMEN: Soft, flat, mild tenderness diffusely, no guarding or rebound tenderness. There are no abnormal masses palpated. No pulsatile masses or bruits. Active and normal bowel sounds. EXTREMITIES: Normal inspection and palpation. No edema. No cyanosis. Patient is able to move all 4 extremities well SKIN: Warm and dry, no rashes noted. MUSCULOSKELETAL: No lumbar or midline bony tenderness. There is no CVA tenderness. No paraspinal muscle spasm or tenderness. NEURO: Cranial nerves II through XII grossly intact. There are no focal neurologic deficits noted. PSYCHIATRIC: Patient is in normal mood and affect, cooperative. LYMPHATICS: No major lymphadenopathy noted. Objective Labs 09/19/25 06:12 09/18/25 05:33 Labs: Laboratory Results - last 24 hr 09/17/25 09/18/25 11:46 05:33 WBC 11.7 H RBC 3.59 L Hgb 11.8 L D Hct 35.1 L MCV 98 MCH 32.9 MCHC 33.6 RDW Std Deviation 45.8 H Plt Count 213 Neut % (Auto) 86 H Lymph % (Auto) 9 L [place] % (Auto) 5 Eos % (Auto) 0 Baso % (Auto) 0 Neut # (Auto) 10.0 H Lymph # (Auto) 1.1 [place] # (Auto) 0.5 Eos # (Auto) 0.0 Baso # (Auto) 0.0 Immature Gran # (Auto) 0.08 H Absolute Nucleated RBC 0.00 Immature Gran % 1 H Nucleated RBC % 0 Sodium 140 Potassium 3.4 Chloride 105 Carbon Dioxide 23.0 Anion Gap 12 BUN 15 Creatinine 1.0 Estim Creat Clear Calc Not Performed. eGFR > 60 BUN/Creatinine Ratio 15 Glucose 102 Calculated Osmolality 280 Calcium 8.3 Phosphorus 2.2 L Magnesium 1.7 Ammonia 30 Syphilis Serology Nonreactive Coccidioides IgG Ab Negative HIV 1&2 Antibody Rapid Non-Reactive ABG Interpretation ABG results: 09/17/25 03:03 ABG pH 7.45 ABG pCO2 35 ABG pO2 67 L ABG HCO3 24 ABG O2 Saturation 95 ABG Base Excess 1 Assessment & Plan Assessment and plan (1) Altered mental status: Status: Acute Assessment and plan: improving EEG showed bilateral frontal and anterior temporal slowing FU with MRI brain Hold off on LP for now as no more fever spikes after admission noted.
[2025-09-19] VITALS (8 sets, daily range): BP systolic 108–123; BP diastolic 71–79; PULSE 58–88; RESP 16–18; TEMP 36.3–37.1; O2SAT 95–99
--- NOTE | 2025-09-19 | XR_ITS ---
Examinations: MRI Brain without intravenous contrast. MRI brain with intravenous contrast MRA brain with intravenous contrast. MRA brain without intravenous contrast MRA neck with intravenous contrast Date and time of exam: September 19, 2025, 0958 hours INDICATIONS: Onset confusion weakness bowel and bladder incontinence beginning several days ago Technique: Multiple axial and sagittal images of the brain have been obtained Siemens high-resolution 1.5 Cristina short bore scanner is utilized. Sagittal sections, T1-weighted, TR 500, TE 14 Axial sections proton density and T2-weighted, TR 3,000, TE 34, TR 3,000, TE 91 Inversion recovery axial images, TR 9,260, TE 111, TI 2,500 Diffusion weighted images, axial sections, TR 4,800, TE 128, B value 1,000 Axial sections, ADC map, TR 4,800, TE 128. Contrast images have been obtained post intravenous 20 cc Gadolinium. T1-weighted axial and coronal images post contrast have been obtained. Angiographic images of neck and brain are obtained pre and post contrast. 3-D post processing performed, including brain, extracranial neck arterial maximum intensity projections Findings: Sellaturcica is not enlarged. The optic chiasm and infundibular stalk are not remarkable. Prepontine and interpeduncular cisterns are not enlarged. No localized enlargement of the medulla or kavon. Fourth ventricle and cerebellar tonsils normal in position. Subacute hemorrhage is not seen. Fourth ventricle is midline. Mass in the cerebellopontine angle region is not evident. 7th and 8th nerve complexes exhibits symmetry. Globes are symmetrical with no retro-orbital mass. Increased white matter signal prominent Diffusion-weighted images demonstrate findings consistent with infarct at the right parietal apex, diffusion image 22 measuring 4.7 x 1.9 cm Mass-effect upon the ventricular system is not identified. Subtle possible enhancement in the right occipital lobe axial image 11 MRA brain carotid images no large vessel occlusions Impression: Findings suspicious for 4.7 x 1.9 cm acute infarct in the high right parietal lobe, the appearance should be clinically correlated Subtle possible enhancement in the right occipital lobe axial image 11
[2025-09-19 06:42] LABS: Basophils # (Auto) 0.0 Thou/mm3 (0.0-0.2); Basophils % (Auto) 0 % (0-2.5); Eosinophils # (Auto) 0.0 Thou/mm3 (0.0-0.5); Eosinophils % (Auto) 1 % (0-10); Hematocrit 33.9 % (41.0-53.0); Hemoglobin 11.8 g/dL (13.5-16.0); Immature Granulocytes Auto 0.02 Thou/mm3 (0.00-0.00); Lymphocytes # (Auto) 1.7 Thou/mm3 (1.0-4.8); Lymphocytes % (Auto) 29 % (10-50); Mean Corpuscular HGB Conc 34.8 g/dl (31.0-37.0); Mean Corpuscular Hemoglobin 33.1 pg (25.0-35.0); Mean Corpuscular Volume 95 fL (80-100); Monocytes # (Auto) 0.6 Thou/mm3 (0.0-0.8); Monocytes % (Auto) 10 % (0-12); Neutrophils # (Auto) 3.5 Thou/mm3 (1.8-7.7); Neutrophils % (Auto) 60 % (37-80); Nucleated Red Blood Cell # 0.00 Thou/mm3 (0.00-0.00); Nucleated Red Blood Cell % 0 /100 WBC (0); Platelet Count 200 Thou/mm3 (140-440); RDW Standard Deviation 43.3 fL (35.1-43.9); Red Blood Count 3.56 Miln/mm3 (4.50-5.90); White Blood Count 5.8 Thou/mm3 (3.8-10.6)
[2025-09-19 07:30] LABS: Anion Gap 11 (7-16); BUN/Creatinine Ratio 18 Ratio (12-20); Blood Urea Nitrogen 14 mg/dL (9-23); Calcium 8.3 mg/dL (8.3-10.6); Carbon Dioxide 25.3 mMol/L (20.0-31.0); Chloride 104 mMol/L (98-107); Creatinine (Component) 0.8 mg/dL (0.6-1.3); Glucose 107 mg/dL (74-106); Magnesium 1.8 mg/dL (1.6-2.6); Osmolality,Calculated 279 (275-295); Phosphorous 2.2 mg/dL (2.4-5.1); Potassium 3.4 mMol/L (3.4-5.1); Sodium 140 mMol/L (136-145); eGFR > 60 See Note
[2025-09-19] MEDS: LOSARTAN POTASSIUM 25 MG TABLET 50 MG PO (08:41)
[2025-09-19] MEDS: ATORVASTATIN CALCIUM 20 MG TABLET 40 MG PO (08:41)
[2025-09-19] MEDS: HEPARIN SOD INJ 5000 UNIT/ML VIAL SC ×2 (08:41→20:31)
[2025-09-19] MEDS: NAPH,KPH MBDB 1 PACKET (1.5 GM) 2 PACKET PO (08:41)
--- NOTE | 2025-09-19 12:07 | ESPR_ITS ---
<Statement entered by Alcides Singh MD - 09/19/25 14:51> No acute overnight events. Seen and examined at bedside and patient resting comfortably in bed. He was alert and oriented to name, birthday, and year but appears to be intermittently confused at times. Vital signs stable. CBC showing resolved leukocytosis and stable hemoglobin. CHEM panel largely unremarkable. EEG showed bilateral frontal and anterior temporal slowing. Neurology recommending to hold off on LP for now as patient has had no more fever spikes since admission. Obtained MRI brain that showed suspicion for 4.7 x 1.9 cm acute infarct in the right parietal lobe and a subtle, possible enhancement in the right occipital lobe. Started on aspirin 81 mg and continuing atorvastatin 40 mg daily. Neurology following, pending further recommendations. Documentation for date of: 09/19/25 Subjective Subjective Interval history: No acute events overnight. Today patient seen examined at bedside. Alert and oriented x 2, no active complaints. Denies headache, double vision, blurry vision, vomiting, lightheadedness. Vitals are stable saturating well on room air. Labs reviewed: resolved leukocytosis, CHEM panel phosphorus 2.2, magnesium 1.8, but repleted. Brain MRI findings suspicious for 4.7 x 1.9 cm acute infarct in the high right parietal. Neurology made aware pending recommendations. Exam Vital Signs Temp Pulse Resp BP Pulse Ox O2 Del Method O2 Flow Rate 97.4 F 78 18 123/78 95 Room Air 97 09/19/25 08:00 09/19/25 08:41 09/19/25 08:00 09/19/25 08:41 09/19/25 08:00 09/19/25 08:00 09/17/25 02:37 Narrative Exam General: Alert, no acute distress.Conversational and non-toxic appearing. Skin: Warm, dry, intact. No rash or ecchymoses. Head: Normocephalic, atraumatic. Eye: Normal conjunctiva, PERRL. Throat: Oral mucosa moist. No obvious lesions in oropharynx. Cardiovascular: Regular rate and rhythm, no murmur, +S1/S2. Respiratory: Lungs are clear to auscultation, respirations unlabored, no crackles, no wheezing. Gastrointestinal: Soft, nontender, non-distended. No guarding or rebound tenderness. Extremities: No edema, no cyanosis, no clubbing. Neuro: Alert and oriented x2 ( fluctuates) .No focal deficits observed. Conversant, moving all extremities. No overt cerebellar signs/incoordination.No nuchal rigidity Psychiatric: Cooperative, appropriate affect Objective Labs 09/20/25 04:20 09/20/25 04:20 Labs: Laboratory Results - last 24 hr 09/17/25 09/19/25 11:46 06:12 WBC 5.8 D RBC 3.56 L Hgb 11.8 L Hct 33.9 L MCV 95 MCH 33.1 MCHC 34.8 RDW Std Deviation 43.3 Plt Count 200 Neut % (Auto) 60 Lymph % (Auto) 29 [place] % (Auto) 10 Eos % (Auto) 1 Baso % (Auto) 0 Neut # (Auto) 3.5 Lymph # (Auto) 1.7 [place] # (Auto) 0.6 Eos # (Auto) 0.0 Baso # (Auto) 0.0 Immature Gran # (Auto) 0.02 H Absolute Nucleated RBC 0.00 Immature Gran % 0 Nucleated RBC % 0 Sodium 140 Potassium 3.4 Chloride 104 Carbon Dioxide 25.3 Anion Gap 11 BUN 14 Creatinine 0.8 Estim Creat Clear Calc Not Performed. eGFR > 60 BUN/Creatinine Ratio 18 Glucose 107 H Calculated Osmolality 279 Calcium 8.3 Phosphorus 2.2 L Magnesium 1.8 Coccidioides IgG Ab Negative ABG Interpretation ABG results: 09/17/25 03:03 ABG pH 7.45 ABG pCO2 35 ABG pO2 67 L ABG HCO3 24 ABG O2 Saturation 95 ABG Base Excess 1 Quality Measures Quality Measures none Assessment & Plan Assessment Current Active Medications: Generic Name Dose Route Start Last Admin Trade Name Fadumo PRN Reason Stop Dose Admin Acetaminophen 650 mg 09/17/25 10:57 09/17/25 18:31 Acetaminophen 325 Mg Tablet PO 10/17/25 10:56 650 mg Q6H PRN Administration Fever >101.5 and pain 1-3 Aspirin 81 mg 09/19/25 12:00 Aspirin Ec 81 Mg Tabec PO 10/19/25 11:59 QDAY GUME Atorvastatin Calcium 40 mg 09/18/25 09:00 09/19/25 08:41 Atorvastatin Calcium 20 Mg Tablet PO 10/18/25 08:59 40 mg DAILY GUME Administration Heparin Sodium (Porcine) 5,000 unit 09/17/25 21:00 09/19/25 08:41 Heparin Sod Inj 5000 Unit/Ml Vial SC 10/01/25 20:59 5,000 unit BID GUME Administration Levetiracetam 500 mg 09/17/25 11:00 09/19/25 11:53 Levetiracetam 250 Mg Tablet PO 10/17/25 10:59 500 mg Q12H GUME Administration Lorazepam 2 mg 09/17/25 14:38 Lorazepam 2 Mg/Ml Vial IVP Q10MIN PRN SEIZURES Losartan Potassium 50 mg 09/18/25 09:00 09/19/25 08:41 Losartan Potassium 25 Mg Tablet PO 10/18/25 08:59 50 mg DAILY GUME Administration Ondansetron HCl 4 mg 09/17/25 10:57 Ondansetron Inj 2 Mg/Ml Inj 2 Ml IVP 10/17/25 10:56 Q6H PRN NAUSEA OR VOMITING Protocol Plan Mr. Salazar is 60 year old male with past medical history significant history of stroke complicated by bowel incontinence (Sep 2024), HTN, HLD, Seizure disorder, who presented to the ED on 09/27/2025 with chief. complaint of altered mental status. #Acute Encephalopathy, multifactorial 2/2 (resolving) #Methamphetamine use #Bowel incontinence 2/2 to prior CVA (2023) #Hypophosphatemia #Leukocytosis (resolve) #Hypokalemia (resolve) DDx: Infectious vs metabolic vs drugs/toxins vs seizures The patient presented with one day of acute confusion and fever following a fall. Per the patient?s , he lost balance and fell, after which he exhibited possible tonic?clonic seizure activity with facial droop, copious drooling, and two episodes of bowel incontinence. Urine toxicology was positive for methamphetamine, though the patient denies use. Given this presentation, acute encephalopathy is suspected, likely multifactorial. Methamphetamine use may have contributed via central nervous system overstimulation, resulting in neurotoxicity, oxidative stress, and neuronal injury, leading to global alteration in mental status. Additionally, electrolyte imbalance, specifically hypokalemia, may have caused neuronal dysfunction contributing to altered mentation. Infectious etiology is also considered, as the patient was febrile with cough and leukocytosis, suggesting a possible respiratory infection contributing to encephalopathy. On examination, the patient?s mentation has already shown improvement following administration of antipyretics, intravenous fluids, and potassium repletion, with no persistent focal neurologic deficits noted. - NIHSS Score:?0 - WBC 15.6, k3.3, CRP 9.6. K 2.2 Procalcitonin 0.18 (normal), TSH is 0.64 (normal). Utox (+) methamphetamine - Received 2L LR maintenance; KCl 40 mEq -Chest x-ray that showed mild vascular congestion - Head/neck CTA showed no significant neck arterial stenosis, - CTAP showed colonic diverticulosis - Passed swallow evaluation - Cocci IgM ab -negative - Ammonia 30 - Syphilis -nonreactive - HIV (1&2) rapid antibody - nonreactive - 09/16/[address] 09/16/24: 3.7 x 4.8 cm acute hemorrhage in the right temporal lobe with mass effect - 09/18/25 MRI brain findings suspicious for 4.7 x 1.9 cm acute infarct in the high right parietal - EEG showed bilateral frontal and anterior temporal slowing Plan - MRI brain wwo MRA and LP as encephalopaty fluctuates and etiology is still not cleared - ASA 81mg qday - Bcx no growth after 48hrs - Neuro Checks -?DVT Prophylaxis - Head of Bed 30 Degrees -?Euglycemia and Avoid Hyperthermia (PRN Acetaminophen) - Daily CBC - Repleated electrolytes as needed - Physical therapy referral - Neurology, recommendation appreciated- hold off on LP for now as no more fever spikes - Counseled regarding dangers and consequences of meth use. Social service referral #Seizure disorder Patient history of sexiure for which she takes Keppra 500 mg. Given pt clinical presentation stated per body stiffnes, facial droop with drooling and drooping of the eyes in setting of fall. Patient might have had a witnessed seizure exacerbated by methamphetamine use. Plan - keppra 500mg and ativan 2mg PRN for breakthrough seizures - Seizure precaution - Neurology consulted- pending recc - EEG done, pening read #Hyperlipidemia - Continue home atorvastatin 40 mg #Primary hypertension On admission BP 148/102, home losartan 50mg Plan - Continue losartan 50mg po daily #?QUINTIN (resolve) On admission, the patient?s creatinine was 1.4 mg/dL with a GFR of 57 mL/min. There are insufficient prior laboratory values to meet criteria for acute kidney injury; the mild creatinine elevation is likely secondary to poor oral intake and dehydration. Pt doesn't meet KDIGO criteria : - Increase in serum creatinine >=0.3 mg/dL within 48 hours, or - Increase in serum creatinine to >=1.5 times baseline known or presumed to have occurred within the prior 7 days, or - Urine output < 0.5 mL/kg/hour for >=6 hours - Prior 09/27/24 Cr 1.0 Plan - Will continue to trend kidney fucntion -Avoid nephrotoxins -Monitor renal panel # CT finding of diverticulosis Patient denies abdominal pain, changes with bowel movement. - CTAP showed colonic diverticulosis - Encouraged increased hydration and fiber intake Hospital management: Lines: peripheral IV Diet: regular GI prophylaxis: pantoprazole DVT prophylaxis: heparin Sc Disposition: med-tele acute encephalopathy CODE STATUS: Full code Patient assessed under supervision of attending physician and senior resident Dr. Singh PGY-2 Aspen Martinez MD PGY-1, Internal Medicine Please note: this document was transcribed using voice recognition technology; minor inaccuracies may be present Attending Provider Attestation/Addendum I have examined the patient, reviewed labs and imaging findings, discussed the case with the resident(s), and reviewed entered orders. I agree with the plan of care as outlined in this note. Dr. Violeta MD
[2025-09-19] MEDS: ASPIRIN EC 81 MG TABEC PO (12:46)
--- NOTE | 2025-09-19 14:38 | PC.PT ---
PT eval only. Patient is I with transfers and ambulation without AD.
--- NOTE | 2025-09-19 16:45 | PD.RESPRO ---
Documentation for date of: 09/19/25 Subjective Subjective Interval history: Patient seen at bedside, reported doing well. He was awake and oriented to self, age, place, and current year. He was conversational and appears to be at baseline mentation. Patient reports he walked with physical therapy today. Reports no weakness, blurry vision, slurred speech, or sensory deficit. Brain MRI/MRA showed acute infarct in the high right parietal lobe. Patient is on aspirin and will continue with that, no DAPT due to the patient's history of hemorrhagic transformation 1 year ago. The enhancement in the right occipital lobe is most likely residual from prior hemorrhagic stroke. Exam Vital Signs Temp Pulse Resp BP Pulse Ox O2 Del Method O2 Flow Rate 97.4 F 66 18 111/71 97 Room Air 97 09/19/25 12:00 09/19/25 16:00 09/19/25 12:00 09/19/25 12:09/19/25 12:09/19/25 12:09/17/25 02:37 Narrative Exam Physical Exam General: Awake and in no acute distress. Conversational and non-toxic appearing. HEENT: Normocephalic, atraumatic, mucous membranes moist. Heart: Regular rate and rhythm, normal S1 and S2, no murmurs. Lungs: Clear to auscultation with no wheezing or crackles. Abdomen: Soft, nondistended, nontender, positive bowel sounds. ?No guarding or rebound tenderness. Neurologic: Alert and oriented x4, no gross neurological deficit, and patient able to move all 4 extremities. 5/5 strength in all extremities. Extremities: No edema. Skin: No rash or ecchymoses. Objective Labs 09/20/25 04:20 09/20/25 04:20 Labs: Laboratory Results - last 24 hr 09/19/25 06:12 WBC 5.8 D RBC 3.56 L Hgb 11.8 L Hct 33.9 L MCV 95 MCH 33.1 MCHC 34.8 RDW Std Deviation 43.3 Plt Count 200 Neut % (Auto) 60 Lymph % (Auto) 29 [place] % (Auto) 10 Eos % (Auto) 1 Baso % (Auto) 0 Neut # (Auto) 3.5 Lymph # (Auto) 1.7 [place] # (Auto) 0.6 Eos # (Auto) 0.0 Baso # (Auto) 0.0 Immature Gran # (Auto) 0.02 H Absolute Nucleated RBC 0.00 Immature Gran % 0 Nucleated RBC % 0 Sodium 140 Potassium 3.4 Chloride 104 Carbon Dioxide 25.3 Anion Gap 11 BUN 14 Creatinine 0.8 Estim Creat Clear Calc Not Performed. eGFR > 60 BUN/Creatinine Ratio 18 Glucose 107 H Calculated Osmolality 279 Calcium 8.3 Phosphorus 2.2 L Magnesium 1.8 ABG Interpretation ABG results: 09/17/25 03:03 ABG pH 7.45 ABG pCO2 35 ABG pO2 67 L ABG HCO3 24 ABG O2 Saturation 95 ABG Base Excess 1 Quality Measures Quality Measures none Assessment & Plan Assessment Current Active Medications: Generic Name Dose Route Start Last Admin Trade Name Freq PRN Reason Stop Dose Admin Acetaminophen 650 mg 09/17/25 10:57 09/17/25 18:31 Acetaminophen 325 Mg Tablet PO 10/17/25 10:56 650 mg Q6H PRN Administration Fever >101.5 and pain 1-3 Aspirin 81 mg 09/19/25 12:00 09/19/25 12:46 Aspirin Ec 81 Mg Tabec PO 10/19/25 11:59 81 mg QDAY GUME Administration Atorvastatin Calcium 40 mg 09/18/25 09:00 09/19/25 08:41 Atorvastatin Calcium 20 Mg Tablet PO 10/18/25 08:59 40 mg DAILY GUME Administration Heparin Sodium (Porcine) 5,000 unit 09/17/25 21:00 09/19/25 08:41 Heparin Sod Inj 5000 Unit/Ml Vial SC 10/01/25 20:59 5,000 unit BID GUME Administration Levetiracetam 500 mg 09/17/25 11:00 09/19/25 11:53 Levetiracetam 250 Mg Tablet PO 10/17/25 10:59 500 mg Q12H GUME Administration Lorazepam 2 mg 09/17/25 14:38 Lorazepam 2 Mg/Ml Vial IVP Q10MIN PRN SEIZURES Losartan Potassium 50 mg 09/18/25 09:00 09/19/25 08:41 Losartan Potassium 25 Mg Tablet PO 10/18/25 08:59 50 mg DAILY GUME Administration Ondansetron HCl 4 mg 09/17/25 10:57 Ondansetron Inj 2 Mg/Ml Inj 2 Ml IVP 10/17/25 10:56 Q6H PRN NAUSEA OR VOMITING Protocol Plan Mr. Salazar is 60 year old male with past medical history significant history of stroke complicated by bowel incontinence (Sep 2024), HTN, HLD, Seizure disorder, who presented to the ED on 09/27/2025 with chief complaint of altered mental status. #Right parietal lobe acute ischemic stroke #Acute encephalopathy, resolved The patient presented with one day of acute confusion and fever following a fall. Per the patient?s , he lost balance and fell, after which he exhibited possible tonic?clonic seizure activity with facial droop, copious drooling, and two episodes of bowel incontinence. Urine toxicology was positive for methamphetamine, though the patient denies use. - Initial NIHSS Score:?0 - Ammonia 30 - Syphilis nonreactive - 09/16/[address] 09/16/24: 3.7 x 4.8 cm acute hemorrhage in the right temporal lobe with mass effect - Head/neck CTA showed no significant neck arterial stenosis - 09/18/25 MRI brain findings suspicious for 4.7 x 1.9 cm acute infarct in the high right parietal - EEG showed bilateral frontal and anterior temporal slowing Plan - Continue aspirin 81 mg qday - No need for LP as no more fever spikes - Counseled regarding dangers and consequences of meth use - Patient may be discharged #Seizure disorder Patient history of seizure for which she takes Keppra 500 mg. Given pt clinical presentation stated per body stiffness, facial droop with drooling and drooping of the eyes in setting of fall. Patient might have had a witnessed seizure exacerbated by methamphetamine use. Patient is at risk for seizures given the history of stroke and affected brain parenchyma last year. - Continue home Keppra 500 mg BID - EEG showed bilateral frontal and anterior temporal slowing Rest of conditions to continue current management per primary team: #Hyperlipidemia #Primary hypertension #CT finding of diverticulosis #Methamphetamine use Patient was discussed with the Neurology attending, Dr. Amaya. Thank you for allowing us to participate in the care of this patient. Neema Small, PGY-3 Attending Provider Attestation/Addendum I Personally have seen and examined the patient at the bedside and agree with resident's findings, assessment and plan of care. Will keep him on aspirin 81 mg alone along with statin as he had ischemic infarct with hemorrhagic conversion last year in September and the contrasted MRI showed enhancement in the same location in addition to the acute infarction in the right parietal area. Patient does not have any focal neurological deficit. Counseled him regarding the importance of methamphetamine cessation to prevent recurrence.
[2025-09-20] VITALS: BP 115/72; PULSE 70; PULSE 74; RESP 19; TEMP 36.4; O2SAT 96
[2025-09-20 03:54] VITALS: BP 108/60; PULSE 65; RESP 18; TEMP 36.9; O2SAT 97
[2025-09-20 04:00] VITALS: PULSE 57
[2025-09-20 05:45] LABS: Basophils # (Auto) 0.0 Thou/mm3 (0.0-0.2); Basophils % (Auto) 1 % (0-2.5); Eosinophils # (Auto) 0.1 Thou/mm3 (0.0-0.5); Eosinophils % (Auto) 1 % (0-10); Hematocrit 34.0 % (41.0-53.0); Hemoglobin 11.6 g/dL (13.5-16.0); Immature Granulocytes Auto 0.02 Thou/mm3 (0.00-0.00); Lymphocytes # (Auto) 2.1 Thou/mm3 (1.0-4.8); Lymphocytes % (Auto) 39 % (10-50); Mean Corpuscular HGB Conc 34.1 g/dl (31.0-37.0); Mean Corpuscular Hemoglobin 32.9 pg (25.0-35.0); Mean Corpuscular Volume 96 fL (80-100); Monocytes # (Auto) 0.4 Thou/mm3 (0.0-0.8); Monocytes % (Auto) 8 % (0-12); Neutrophils # (Auto) 2.8 Thou/mm3 (1.8-7.7); Neutrophils % (Auto) 52 % (37-80); Nucleated Red Blood Cell # 0.00 Thou/mm3 (0.00-0.00); Nucleated Red Blood Cell % 0 /100 WBC (0); Platelet Count 184 Thou/mm3 (140-440); RDW Standard Deviation 43.9 fL (35.1-43.9); Red Blood Count 3.53 Miln/mm3 (4.50-5.90); White Blood Count 5.5 Thou/mm3 (3.8-10.6)
[2025-09-20 06:19] LABS: Anion Gap 8 (7-16); BUN/Creatinine Ratio 15 Ratio (12-20); Blood Urea Nitrogen 12 mg/dL (9-23); Calcium 8.7 mg/dL (8.3-10.6); Carbon Dioxide 25.1 mMol/L (20.0-31.0); Chloride 108 mMol/L (98-107); Creatinine (Component) 0.8 mg/dL (0.6-1.3); Glucose 93 mg/dL (74-106); Magnesium 1.8 mg/dL (1.6-2.6); Osmolality,Calculated 280 (275-295); Phosphorous 3.2 mg/dL (2.4-5.1); Potassium 3.6 mMol/L (3.4-5.1); Sodium 141 mMol/L (136-145); eGFR > 60 See Note
[2025-09-20 08:00] VITALS: BP 106/59; PULSE 60; RESP 18; TEMP 36; O2SAT 98
[2025-09-20 08:57] VITALS: BP 132/79; PULSE 60
[2025-09-20] MEDS: LOSARTAN POTASSIUM 25 MG TABLET 50 MG PO (08:57)
[2025-09-20] MEDS: ATORVASTATIN CALCIUM 20 MG TABLET 40 MG PO (08:57)
[2025-09-20] MEDS: ASPIRIN EC 81 MG TABEC PO (08:58)
[2025-09-20] MEDS: HEPARIN SOD INJ 5000 UNIT/ML VIAL SC (08:58)
--- NOTE | 2025-09-20 11:01 | ESDS_ITS ---
<Statement entered by Wendy Correia DO - 09/21/25 15:07> I, Wendy Correia DO, attest that I was physically present for the brewer portions of the service and evaluated the patient with the resident and I reviewed and discussed the case with the resident and agree with the resident's findings and plans of care as documented above <Statement entered by Alcides Singh MD - 09/20/25 14:08> Note reviewed and agree with care plan as documented. Please refer to the note below for further details. Plan discussed with attending physician Dr. Bren Singh MD PGY-2 Internal Medicine Planned Discharge Date 09/20/25 DS: Providers Provider Date of admission: 09/17/25 09:56 Primary care physician: SAMANTHA Gutiérrez Admitting Provider: Eric Mcdaniel MD Attending Provider on Admission: Eric Mcdaniel MD Consults: 09/17/25 02:07 Consult to Neurology / Tele-Neurology Routine Comment: Consulting Provider: [facility] 09/17/25 09:55 Consult to Neurology / Tele-Neurology Routine Comment: Consulting Provider: Andrea Amaya 09/17/25 10:55 PT [Referral Physical Therapy] Routine Comment: Physician Instructions: Attending Provider on DC: Wendy Correia DO Discharging Provider: Wendy Correia DO Anticipated date of discharge: 09/20/25 DS: Diagnosis Problem List Completed Was Problem List Reviewed/Reconciled?: Yes Hospital Course Hospital Course Hospital course: 60-year-old male with a past medical history of CVA complicated by bowel incontinence (Sep 2024), seizure, hypertension, hyperlipidemia presented with acute encephalopathy on 09/17/25. at bedside and provided additional history he stated that for the last couple of days patient appeared to be weak and had multiple falls with associated bowel or bladder incontinence. He denies any tonic-clonic movements or loss of consciousness but may have seen some facial droop but unsure which side. Due to unresolving symptoms, family member called EMS and patient was brought to the ED. In the ED, stroke alert was called and teleneurology was consulted. Differentials include seizure activity versus multifactorial encephalopathy versus infection versus metabolic etiology. GCS of 14 upon evaluation NIHSS of 0 and recommended further workup. CT head negative, CTA head/neck negative. CT C/A/P unremarkable. EKG showing sinus tachycardia. CBC shows mild leukocytosis. CHEM panel significant for mild hypokalemia and creatinine of 1.4 but otherwise unremarkable. U tox positive for amphetamines. Ammonia, TSH, B12, folate, ESR, CRP, HIV, and RPR per teleneuro recommendations were negative. Patient had 2 febrile episodes and fluctuating mentation. EEG orders showed bilateral frontal and anterior temporal slowing. Per Neuro MRI was done, showed acute infarct in the high right parietal lobe. The enhancement in the right occipital lobe is most likely residual from prior hemorrhagic stroke. Hence patient may be discharge on aspirin, no DAPT due to the patient's history of hemorrhagic transformation 1 year ago. Throughout the hospital course patient other problems were managed and his condition improved remarkably with progression of hospital course. Further plan to discharge the patient home to self care with the following instructions. Discharge recommendation: - Follow up with PCP in 1-2 weeks, If you don't have a PCP, you can make an appointment at the [facility]: - Prescribed new Aspirin 81m once daily - Continue rest of medications as previously prescribed - Counseled regarding dangers and consequences of meth use - Return to the ED or call EMS is symptoms return and/or worsen Hospital Diagnoses: #Right parietal lobe acute ischemic stroke #Acute Encephalopathy, multifactorial 2/2 (resolve) #Methamphetamine use #Bowel incontinence 2/2 to prior CVA (2023) #Seizure disorder #Hyperlipidemia #Primary hypertension #CT finding of diverticulosis #Hypophosphatemia #Leukocytosis (resolve) #Hypokalemia (resolve) #?QUINTIN (resolve) Patient assessed under supervision of attending physician Dr.K Correia and senior resident Dr. Singh PGY-2 Aspen Martinez MD PGY-1, Internal Medicine Please note: this document was transcribed using voice recognition technology; minor inaccuracies may be present. Time Spent with Patient Time attestation: Total time spent providing and/or coordinating discharge services: Time spent: Greater than 30 minutes Exam Vital Signs Temp Pulse Resp BP Pulse Ox O2 Del Method O2 Flow Rate 96.8 F 60 18 132/79 H 98 Room Air 97 09/20/25 08:00 09/20/25 08:57 09/20/25 08:00 09/20/25 08:57 09/20/25 08:00 09/20/25 08:00 09/17/25 02:37 Narrative Exam General: Alert, no acute distress.Conversational and non-toxic appearing. Skin: Warm, dry, intact. No rash or ecchymoses. Head: Normocephalic, atraumatic. Eye: Normal conjunctiva, PERRL. Throat: Oral mucosa moist. No obvious lesions in oropharynx. Cardiovascular: Regular rate and rhythm, no murmur, +S1/S2. Respiratory: Lungs are clear to auscultation, respirations unlabored, no crackles, no wheezing. Gastrointestinal: Soft, nontender, non-distended. No guarding or rebound tenderness. Extremities: No edema, no cyanosis, no clubbing. Neuro: Alert and oriented x3.No focal deficits observed. Conversant, moving all extremities. No overt cerebellar signs/incoordination. Psychiatric: Cooperative, appropriate affect Discharge Plan Plan Patient Disposition: HOME (Self Care) Patient condition on transfer: Stable Care Plan Goals: - Follow up with PCP in 1-2 weeks, If you don't have a PCP, you can make an appointment at the [facility]: - Prescribed new Aspirin 81m once daily - Continue rest of medications as previously prescribed - Counseled regarding dangers and consequences of meth use - Return to the ED or call EMS is symptoms return and/or worsen - Realice un seguimiento con mcmahan m?dico de cabecera en 1-2 semanas. Si no tiene un m?dico de cabecera, puede programar susan valentino en el [facility]?[place]: - Se le recet? aspirina de 81 mg susan vez al d?a. - Contin?e tomando el citlaly de jim medicamentos seg?n lo indicado. - Se le inform? sobre los peligros y las consecuencias del consumo de metanfetaminas. - Regrese a la jose de emergencias o llame a los servicios de emergencia si los s?ntomas reaparecen o empeoran. Prescriptions/Referrals Prescriptions/Med Rec: New aspirin 81 mg Tablet,Delayed Release (Dr/Ec) 81 mg PO QDAY 30 Days Qty: 30 0RF Continued ergocalciferol (vitamin D2) 1,250 mcg (50,000 unit) capsule 50,000 unit PO .weekly Patient Comments: TAKE 1 CAPSULE BY MOUTH ONCE WEEKLY losartan 50 mg tablet 50 mg PO DAILY Patient Comments: TAKE 1 TABLET BY MOUTH EVERY DAY atorvastatin 40 mg tablet 40 mg PO DAILY Patient Comments: TAKE 1 TABLET BY MOUTH ONCE DAILY IN THE EVENING levetiracetam 500 mg tablet 500 mg PO Q12H Patient Comments: TAKE 1 TABLET BY MOUTH TWICE A DAY Referrals: Sonia Benavidez FNP-C [Primary Care Provider] Patient/Caregiver Discharge Instructions Discharge Activity: as per physical therapy and activity as tolerated Education Materials: Discharge Instructions for Stroke Print Language: Serbian Stand Alone Forms: Lissett Award Info., Patient Portal Info Letter Discharge Order Discharge Orders: Discharge (Routine); Ordered 09/20/25 Ordered By: Alcidse Singh Quality Discharge Quality Measures VTE prophylaxis
[2025-09-20 16:50] LABS: Atypical Lymphs 2+; Band Neutrophils (Manual) 13 % (0-6); Eosinophils (Manual) 1 % (0-4); Lymphocytes (Manual) 36 % (20-44); Monocytes (Manual) 12 % (2-9); Neutrophils (Manual) 38 % (50-70)
== END 2025-09-20 12:36 | disposition home or self-care (01) | DRG 45 ==
LOC: SERX 02:17 → SERHOLD 10:07 → S3SX 16:07
PROVIDERS: Admitting Provider Student in an Organized Health Care Education/Training Program; Emergency Provider Emergency Medicine; Visit Provider Student in an Organized Health Care Education/Training Program
DX: I63.9 Cerebral infarction, unspecified (principal); G93.40 Encephalopathy, unspecified; I10 Essential (primary) hypertension; E78.5 Hyperlipidemia, unspecified; R29.6 Repeated falls; E87.6 Hypokalemia; E83.39 Other disorders of phosphorus metabolism; F15.90 Other stimulant use, unspecified, uncomplicated; G40.909 Epilepsy, unspecified, not intractable, without status epilepticus; K57.90 Diverticulosis of intestine, part unspecified, without perforation or abscess without bleeding; N17.9 Acute kidney failure, unspecified; R15.9 Full incontinence of feces; R29.810 Facial weakness; E86.0 Dehydration; Z79.82 Long term (current) use of aspirin; Z79.899 Other long term (current) drug therapy; R29.700 NIHSS score 0
CPT/HCPCS: 36415; 36600; 70450; 70496; 70498; 70546; 70548; 70553; 71045; 71250; 74176; 80048; 80053; 80307; 80320; 81001; 82010; 82140; 82248; 82803; 83036; 83605; 83735; 83880; 84100; 84145; 84443; 84484; 85025; 85610; 85730; 86140; 86331; 86635; 86703; 86780; 87040; 87502; 87635; 93005; 95816; 96361; 96365; 96375; 97162; 99291; 99292; A4649; A9577; J0696; J1644; J1885; J3475; J3490; J7120; Q9967; A9270; G0480; J1836